=== PATIENT | female | born 1930 | race Asian ===

== ENCOUNTER → 2017-02-02 | Outpatient (CLI) | payer MEDICARE, OTHER, MEDICAID ==
[~2017-02-02] MED LIST: ACET-783 PO; AMLO5TAB4 PO; CALC-22 PO; CITA10TA7 PO; DOCU-175 PO; ENOX40DI SQ; LORA0.5T86 PO; MAGN400O6 PO; MULT-65 PO; POLY17PO6 PO; QUET25TA PO; RISE35TA PO; TRAM50TA53 PO; [UNRECOGNIZED DRUG - REMARK] PO
[2017-02-02 06:37] LABS: BASOPHILS % (AUTO) 0.3 % (0-2); EOSINOPHILS # (AUTO) 0.2 T/MM3 (0-0.5); EOSINOPHILS % (AUTO) 2.1 % (0-4); HCT - HEMATOCRIT 37.9 % (36-46); HGB - HEMOGLOBIN 12.6 GM/DL (12-16); IMMATURE GRANULOCYTE # (AUTO) 0.01 T/MM3 (0.00-0.03); IMMATURE GRANULOCYTE % (AUTO) 0.1 % (0.0-0.5); LYMPHOCYTES # (AUTO) 2.1 T/MM3 (1-4.8); LYMPHOCYTES % (AUTO) 27.3 % (23-45); MEAN CORPUSCULAR HGB 31.7 UUG (26-34); MEAN CORPUSCULAR HGB CONC(MCHC 33.2 GM/DL (31-37); MEAN CORPUSCULAR VOLUME 95.2 UM3 (80-100); MEAN PLATELET VOLUME 9.1 UM3 (9.4-12.4); MONOCYTES # (AUTO) 0.9 T/MM3 (0-0.8); NEUTROPHILS #(AUTO)-ABSOLUTE 4.6 T/MM3 (1.8-7.7); NEUTROPHILS % (AUTO) 59.2 % (33-66); RED BLOOD COUNT 3.98 M/MM3 (4.00-5.20); WBC - WHITE BLOOD COUNT 7.8 T/MM3 (4.5-11.0)
== END ==
LOC: LABNH.A213 02:10
PROVIDERS: ATTEND Family Medicine
DX: I10 Essential (primary) hypertension (principal)
CPT/HCPCS: 36415; 85025; P9604

== ENCOUNTER → 2017-04-04 | Outpatient (CLI) | payer MEDICARE, OTHER, MEDICAID ==
[2017-04-04 17:18] LABS: BLOOD, URINE NEGATIVE (NEGATIVE); COLOR,URINE YELLOW (YELLOW); LEUKOCYTE ESTERASE ,URINE TRACE (NEGATIVE); NITRITE,URINE NEGATIVE (NEGATIVE); UROBILINOGEN,URINE 0.2 EU/DL (NORMAL)
[2017-04-04 17:27] LABS: BACTERIA,URINE NONE SEEN (NEGATIVE); RBC,URINE NONE SEEN /HPF (0-3); SQUAMOUS EPITHELIAL CELL,UR 0-5; WBC,URINE 0-1 /HPF (0-5)
== END ==
LOC: LABN.A1213 16:40
PROVIDERS: ATTEND Family Medicine
DX: R35.0 Frequency of micturition (principal)
CPT/HCPCS: 81001; 87086

== ENCOUNTER 2018-02-26 09:22 | Inpatient (IN) ==
[2018-02-26] MEDS ORDERED: NS 1,000 ML IV ONE (09:35)
--- NOTE | 2018-02-26 09:43 | Emergency Department Report ---
General Adult HPI - General Chief complaint: Medical Emergency Stated complaint: Lethargy Time Seen by Provider: 02/26/18 09:34 Source: patient, family, EMS Mode of arrival: EMS Limitations: other (dementia) - History of Present Illness HPI narrative: 87-year-old female presents to the emergency department via EMS with the chief complaint of feeling poorly. Patient was at her assisted living facility when she noted onset of fever of 101F and feeling poorly. She denies any pain or discomfort. He was at home when her symptoms began. Symptoms have been persistent in nature since onset. Patient is a do not resuscitate. Patient's daughter is at bedside and confirms the patient has a history of similar symptoms with urinary tract infections. Patient is at baseline mental status with dementia. No other complaints or associated symptoms at this time. History is limited secondary to dementia. - Related Data Home Medications Medication Instructions Recorded Confirmed Acetaminophen [Acetaminophen Extra 500 mg PO TID 08/06/17 02/26/18 Strength] Alendronate [Fosamax] 70 mg PO Q7D 08/06/17 02/26/18 Bisacodyl Supp [Dulcolax] 10 mg RECTALLY DAILY PRN 08/06/17 02/26/18 Calcium Carbonate/Vitamin D3 1 tab PO BID 08/06/17 02/26/18 [Caltrate 600 Plus D3 Tablet] Dextromethorphan HBr [Tussin Cough] 30 mg PO Q4H PRN 08/06/17 02/26/18 Donepezil HCl [Aricept] 10 mg PO HS 08/06/17 02/26/18 Guaifenesin/Dextromethorphan 10 ml PO Q4H PRN 08/06/17 02/26/18 [Tussin Dm Syrup] Memantine [Namenda] 10 mg PO BID 08/06/17 02/26/18 Prazosin [Minipress] 1 mg PO HS 08/06/17 02/26/18 Rosuvastatin [Crestor] 10 mg PO HS 08/06/17 02/26/18 Acetaminophen 325 - 650 mg PO Q5H PRN 02/26/18 02/26/18 Citalopram [Celexa] 10 mg PO DAILY 02/26/18 02/26/18 Clotrimazole [Antifungal] 1 applicatio TOP Q8H 02/26/18 02/26/18 Docusate Sodium [Colace] 100 mg PO BID 02/26/18 02/26/18 Milk of Magnesia [Mom] 30 ml PO DAILY 02/26/18 02/26/18 Multivitamin [One Daily] 1 each PO DAILY 02/26/18 02/26/18 Polyethylene Glycol 3350 17 gm PO DAILY 02/26/18 02/26/18 [Smoothlax] Previous Rx's Medication Instructions Recorded Amlodipine Besylate [Norvasc] 5 mg PO DAILY 30 Days #0 tab 05/16/14 Allergies Allergy/AdvReac Type Severity Reaction Status Date / Time No Known Allergies Allergy Verified 02/26/18 09:44 Review of Systems Limitations: ROS unobtainable due to patient's medical condition Constitutional: Reports: fever, weakness Cardiovascular: Denies: chest pain Respiratory: Denies: cough Gastrointestinal: Denies: abdominal pain PFS Patient Stated Medical History Dementia Yes Other HEENT Yes: WEARS GLASSES Hypertension Yes Depression Yes Medical History Updates: Depression, anxiety, hyperlipidemia, hypertension Surgical History: Hysterectomy Family History: Reviewed and Non-contributory. - Social History Smoking status: Never smoker Substance use type: does not use Alcohol intake frequency: does not drink Physical Exam - Limitations Limitations: other (Dementia) - General General appearance: alert, in no apparent distress - Normal Exams: Head:: Normocephalic without trauma Eyes:: Pupils are PERRLA w/ EOMI, No scleral icterus, irritation, or foreign bodies noted ENMT:: No facial trauma, nasal exudates, pharyngeal erythema, or exudates are noted Dental: No fractured, loose, or missing teeth noted Neck:: Full range of motion, without adenopathy, JVD, bruits or thyromegaly Chest/Respirations:: Clear all balderas, with good airflow, and symmetry bilaterally Cardiovascular:: Regular rate and rhythm, without murmur or gallop, Pulses 2+ all extremities, capillary refill, <2 seconds all extremities Abdomen:: Bowel sounds positive, soft, non-tender, non-distended, no hepatosplenomegaly, masses or bruits noted Lymphatic:: No lymphadenopathy, or lymphedema noted Musculoskeletal:: No tenderness, or deformity noted, good range of motion, all extremities Integumentary:: No rashes, hives, or bruising noted, hair and nails, without abnormality Neurological:: Patient is alert (Oriented x 1-2. No focal deficit. Baseline mental status. ) Course Vital Signs Temperature 99.3 F 02/26/18 09:25 Pulse Rate 93 02/26/18 09:25 Respiratory Rate 20 02/26/18 09:25 Blood Pressure 86/52 02/26/18 09:25 Pulse Oximetry 93 02/26/18 09:25 Temperature 98.8 F 02/26/18 12:15 Pulse Rate 88 02/26/18 13:06 Respiratory Rate 6 L 02/26/18 13:06 Blood Pressure 91/61 02/26/18 12:04 Pulse Oximetry 94 02/26/18 13:06 Medical Decision Making - MDM Narrative Medical decision making narrative: Labs / Imaging were discussed in detail with the patient and family and questions are answered. She is ordered Rocephin at 0947 when sepsis was considered. She was ordered 30 mL/kg of normal saline intravenously. Patient is a do not resuscitate. Patient is discussed with the hospitalist Dr. Benito Godwin and then admitted to his service in improved condition. Patient and family are in agreement with the current plan of management. No further orders from accepting physician who is in agreement with the current plan of management. She is ordered Rocephin at 0947 when sepsis was considered. She was ordered 30 mL/kg of normal saline intravenously. - Differential Diagnosis UTI, Sepsis, pneumonia, metabolic process - Lab Data Result diagrams: 02/26/18 09:29 02/26/18 09:55 Lab Results 02/26/18 02/26/18 02/26/18 Range/Units 09:29 09:29 09:55 WBC 26.8 H* (4.5-11.0) T/MM3 RBC 4.18 (4.00-5.20) M/MM3 Hgb 13.3 (12-16) GM/DL Hct 39.5 (36-46) % MCV 94.5 (80-100) UM3 MCH 31.8 (26-34) UUG MCHC 33.7 (31-37) GM/DL RDW Std Deviation 45.2 (36.9-50.2) FL Plt Count 169 (130-400) T/MM3 MPV 9.6 (9.4-12.4) UM3 Immature Gran % (Auto) Not performed Neut % (Auto) Not performed Lymph % (Auto) Not performed [place] % (Auto) Not performed Eos % (Auto) Not performed Baso % (Auto) Not performed Neut # (Auto) Not performed Lymph # (Auto) Not performed [place] # (Auto) Not performed Eos # (Auto) Not performed Baso # (Auto) Not performed Abs Immat Gran (auto) Not performed Neutrophils % (Manual) 70.0 H (33-66) % Band Neutrophils % 26.0 H (0-6) % Monocytes % (Manual) 3.0 (0-9.0) % Metamyelocytes % 1.0 H (0-0) % Neutrophils # (Manual) 18.8 H (1.8-7.7) T/MM3 Band Neutrophils # 7.0 T/MM3 Monocytes # (Manual) 0.8 (0-0.8) T/MM3 Metamyelocytes # 0.3 T/MM3 RBC Morph Comment Normal Turbidity < 20 (0-20) Sodium 146 H (134-144) MEQ/L Potassium 3.8 (3.6-5) MEQ/L Chloride 112 H (98-107) MEQ/L Carbon Dioxide 24 (22-30) MEQ/L Anion Gap 10 (5-15) MEQ/L BUN 24.0 H (7-17) MG/DL Creatinine 1.2 (0.7-1.2) mg/dL GFR Calculation 42 BUN/Creatinine Ratio 20 (6-26) RATIO Glucose 122 H (65-110) MG/DL Calculated Osmolality 286 H (261-280) MOSM/KG Calcium 8.6 (8.4-10.2) MG/DL Total Bilirubin 0.30 (0.20-1.30) MG/DL Icterus Index < 2 (0-7) AST 28 (14-36) U/L ALT 22 (1-35) U/L Alkaline Phosphatase 42 (38-126) U/L Troponin I < 0.012 (0-0.12) ng/ml Total Protein 6.2 L (6.3-8.2) g/dL Albumin 3.7 (3.5-5.0) g/dL Globulin 2.5 (2.4-3.6) G/DL Albumin/Globulin Ratio 1.5 (1.1-2.2) RATIO Plasma Lactate 3.0 H (0.6-2.2) MMOL/L Procalcitonin 50.92 H* NG/ML Specimen Hemolysis < 15 (0-25) Ur Collection Type Urine Color (YELLOW) Urine Clarity Urine pH (5.0-8.0) Ur Specific [place] (1.015-1.025) Urine Protein (NEGATIVE) Urine Glucose (UA) (NEGATIVE) Urine Ketones (NEGATIVE) Urine Occult Blood (NEGATIVE) Urine Nitrate (NEGATIVE) Urine Bilirubin (NEGATIVE) Urine Urobilinogen (NORMAL) EU/DL Ur Leukocyte Esterase (NEGATIVE) Urine RBC (0-3) /HPF Urine WBC (0-5) /HPF Urine WBC Clumps Ur Transition Epith Cell /HPF Amorphous Sediment Urine Bacteria (NEGATIVE) Ur Culture Indicated? 02/26/18 Range/Units 10:12 WBC (4.5-11.0) T/MM3 RBC (4.00-5.20) M/MM3 Hgb (12-16) GM/DL Hct (36-46) % MCV (80-100) UM3 MCH (26-34) UUG MCHC (31-37) GM/DL RDW Std Deviation (36.9-50.2) FL Plt Count (130-400) T/MM3 MPV (9.4-12.4) UM3 Immature Gran % (Auto) Neut % (Auto) Lymph % (Auto) [place] % (Auto) Eos % (Auto) Baso % (Auto) Neut # (Auto) Lymph # (Auto) [place] # (Auto) Eos # (Auto) Baso # (Auto) Abs Immat Gran (auto) Neutrophils % (Manual) (33-66) % Band Neutrophils % (0-6) % Monocytes % (Manual) (0-9.0) % Metamyelocytes % (0-0) % Neutrophils # (Manual) (1.8-7.7) T/MM3 Band Neutrophils # T/MM3 Monocytes # (Manual) (0-0.8) T/MM3 Metamyelocytes # T/MM3 RBC Morph Comment Turbidity (0-20) Sodium (134-144) MEQ/L Potassium (3.6-5) MEQ/L Chloride (98-107) MEQ/L Carbon Dioxide (22-30) MEQ/L Anion Gap (5-15) MEQ/L BUN (7-17) MG/DL Creatinine (0.7-1.2) mg/dL GFR Calculation BUN/Creatinine Ratio (6-26) RATIO Glucose (65-110) MG/DL Calculated Osmolality (261-280) MOSM/KG Calcium (8.4-10.2) MG/DL Total Bilirubin (0.20-1.30) MG/DL Icterus Index (0-7) AST (14-36) U/L ALT (1-35) U/L Alkaline Phosphatase (38-126) U/L Troponin I (0-0.12) ng/ml Total Protein (6.3-8.2) g/dL Albumin (3.5-5.0) g/dL Globulin (2.4-3.6) G/DL Albumin/Globulin Ratio (1.1-2.2) RATIO Plasma Lactate (0.6-2.2) MMOL/L Procalcitonin NG/ML Specimen Hemolysis (0-25) Ur Collection Type Urine, cath straight Urine Color [place] (YELLOW) Urine Clarity Cloudy Urine pH >=9.0 A (5.0-8.0) Ur Specific [place] 1.010 L (1.015-1.025) Urine Protein 2+ A (NEGATIVE) Urine Glucose (UA) Negative (NEGATIVE) Urine Ketones Trace A (NEGATIVE) Urine Occult Blood Negative (NEGATIVE) Urine Nitrate Negative (NEGATIVE) Urine Bilirubin 1+ A (NEGATIVE) Urine Urobilinogen 0.2 (NORMAL) EU/DL Ur Leukocyte Esterase 2+ A (NEGATIVE) Urine RBC 0-1 (0-3) /HPF Urine WBC Tntc H (0-5) /HPF Urine WBC Clumps Few Ur Transition Epith Cell 1-3 /HPF Amorphous Sediment Many Urine Bacteria 4+ H (NEGATIVE) Ur Culture Indicated? Cult reflexed &setup - Radiology Data CXR - Hypoinflation. Similar to comparison exam but cannot exclude underlying infiltrates. CT HEAD - Sinus disease and chronic brain changes. No acute processes. - EKG Data EKG #1 EKG results narrative: Sinus rhythm. 92 bpm. No STEMI. Disposition Clinical Impression: UTI (urinary tract infection) Qualifiers: Urinary tract infection type: site unspecified Hematuria presence: without hematuria Qualified Code(s): N39.0 - Urinary tract infection, site not specified [place] [facility] [place] Condition: Stable Time of Disposition: 11:00 - Seen By: physician
[2018-02-26] MEDS ORDERED: CEFTRIAXONE (ER USE ONLY) 1 GM in NS 100 ML IV ONE (09:47)
[2018-02-26] MEDS: SALINE FLUSH 10ml SYRINGE IVF PRN ×2 (10:36→12:52)
[2018-02-26] MEDS ORDERED: NS 1,000 ML IV SCH (10:45)
--- NOTE | 2018-02-26 12:03 | History & Physical Report ---
History of Present Illness Date: 02/26/18 ([place] resident) Chief complaint: Lethargy HPI: Ian is an 87 yo AF with a history of dementia/behavioral dyscontrol that reside in [place]. 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 Due to progression of her dementia, she is now in the LTC facility. She is lethargic and does not respond well to stimuli. History is obtained from old records, and her daughter as well. Patient was noted to be lethargic this morning per ER records. She was brought into the ER due to her symptoms, as well as a fever. She has been found to be acutely septic with symptoms of septic shock. She has been started on sepsis protocol, and is being admitted to the ICU. Initial diagnosis in the ER has been UTI, however, her CXR is also concerning for a pulmonary source of infection. Upon further discussion with the daughter, she reports that her mother has had several episodes of a persistent cough. Initially resolved spontaneously, but has most recently required nebulizer treatments to help her symptoms. She does not routinely visit at mealtimes, and staff has not reported a cough, however, daughter has been notified by another resident that the patient "chokes a lot at meals." She does not believe patient has a prior diagnosis of heart issues or heart failure. Has not been evaluated by cardiology. No recent issues with edema reported. We discussed diagnosis of sepsis and plan/wishes of care. Patient is a full DNR. Daughter reports that patient was very clear when she was well that she did not want advanced life support measures, did not wish to be sustained w/o quality of life, and would not want overly aggressive measures. We discussed current status, possible means of support: -Full DNR, no intubation. -Questionable Bipap- D/W daughter before starting if needed. -No pressors. -No feeding tubes of any type. Daughter is supportive of more conservative means of treatment with goal of quality of life at this point. She is agreeable to supportive treatment of infection with monitoring of progress. Review of Systems ROS unobtainable: due to mental status Past Medical History Medical History Updates: Depression/Anxiety. Dementia with behavioral dyscontrol. HTN. DLDM. Osteoporosis Surgical History: Hysterectomy. Left hip Family History: Mother and Father both of stroke Family History: As Above - Social History Smoking status: Never smoker Housing: care home Current occupational status: disabled Current occupational exposures/hazards: No Does patient use chewing tobacco?: No Current residence: [place] ([place]) Medications Home Medications Medication Instructions Recorded Confirmed Type Amlodipine Besylate [Norvasc] 5 mg PO DAILY 30 Days #0 tab 05/16/14 02/26/18 Rx Acetaminophen [Acetaminophen Extra 500 mg PO TID 08/06/17 02/26/18 History Strength] Alendronate [Fosamax] 70 mg PO Q7D 08/06/17 02/26/18 History Bisacodyl Supp [Dulcolax] 10 mg RECTALLY DAILY PRN 08/06/17 02/26/18 History Calcium Carbonate/Vitamin D3 1 tab PO BID 08/06/17 02/26/18 History [Caltrate 600 Plus D3 Tablet] Dextromethorphan HBr [Tussin Cough] 30 mg PO Q4H PRN 08/06/17 02/26/18 History Donepezil HCl [Aricept] 10 mg PO HS 08/06/17 02/26/18 History Guaifenesin/Dextromethorphan 10 ml PO Q4H PRN 08/06/17 02/26/18 History [Tussin Dm Syrup] Memantine [Namenda] 10 mg PO BID 08/06/17 02/26/18 History Prazosin [Minipress] 1 mg PO HS 08/06/17 02/26/18 History Rosuvastatin [Crestor] 10 mg PO HS 08/06/17 02/26/18 History Acetaminophen 325 - 650 mg PO Q5H PRN 02/26/18 02/26/18 History Citalopram [Celexa] 10 mg PO DAILY 02/26/18 02/26/18 History Clotrimazole [Antifungal] 1 applicatio TOP Q8H 02/26/18 02/26/18 History Docusate Sodium [Colace] 100 mg PO BID 02/26/18 02/26/18 History Milk of Magnesia [Mom] 30 ml PO DAILY 02/26/18 02/26/18 History Multivitamin [One Daily] 1 each PO DAILY 02/26/18 02/26/18 History Polyethylene Glycol 3350 17 gm PO DAILY 02/26/18 02/26/18 History [Smoothlax] Allergies Allergy/AdvReac Type Severity Reaction Status Date / Time No Known Allergies Allergy Verified 02/26/18 09:44 Exam Vital Signs: Temperature 99.3 F 02/26/18 09:25 Pulse Rate 87 02/26/18 11:15 Respiratory Rate 18 02/26/18 10:59 Blood Pressure 105/63 02/26/18 11:15 Pulse Oximetry 96 02/26/18 11:15 Telemetry Rhythm: Sinus Tachycardia Height/Weight/BMI: Height 1.6 m Weight 70.1 kg - Constitutional Present: moderate distress (She is dyspneic and wheezing audibly.), obese, somnolent - Routine HEENT Exam Head: Present: normocephalic, atraumatic Eye: Absent: PERRL (Pupils are constricted bilaterally. ) ENT: Present: mucous membranes dry. Absent: dentition normal - Routine Neck Exam Present: supple, full ROM. Absent: carotid bruit, thyromegaly, tenderness - Routine Respiratory Exam Present: accessory muscle use, decreased breath sounds, wheezes (Audible. ), diminished air movement (Has sleep-apneic breathing patter. ) - Routine Cardiovascular Exam Present: RRR, S1, S2, no murmur, tachycardia - Routine Abdominal Exam Present: soft, non distended, non tender. Absent: normoactive bowel sounds ( Quiet) - Routine Exam Comments: Kowalski- dark casandra, cloudy urine - Routine Extremities Exam Present: no edema, pulses intact. Absent: extremity cold to touch - Routine Skin Exam Present: intact, dry, warm. Absent: mottling - Routine Neurological Exam Absent: alert, oriented X3 - Routine Psychiatric Exam Present: unable to assess Results - Labs CBC & Chem 7: 02/26/18 09:29 02/26/18 09:55 Microbiology Results: Microbiology 02/26/18 10:12 Urine, Cath Straight Urine Culture - Preliminary Culture Initiated - Results Pending - Imaging and Cardiology Chest x-ray Status: image reviewed by me (Bilateral infiltrates. Underinflated bilaterally. Visible aortic calcification. ), pending CT scan - head Status: image reviewed by me Additional comments: Mod-severe cortical atrophy. Sinus disease. No stroke per Vrad Assessment and Plan (1) Severe sepsis Current visit: Yes Status: Acute Assessment and Plan: Assessment: 1. Severe Sepsis 2. UTI, complicated 3. HCAP, with likely aspiration 4. Advanced dementia with behavioral dyscontrol. 5. Acute respiratory insufficiency 6. Altered mental status. 7. HTN 8.DLDM 9. Suspected chronic aspiration Plan: 02/26/18 Admit- Inpatient, ICU admission. D/W Dr. Godwin *Severe sepsis- Urine and pulm sources likely. Core measures for sepsis. Will need to use caution for fluid overload. She is audibly wheezy, give Lasix x 1 now. Add nebs for PRN use. Add broad spectrum abx- use Zosyn/Vanco due to concern for aspiration and UTI. Avoid Quinolone due to advanced age, risk for sz and behavior changes. BC done. Urine cx. done. NPO. O2 to support sats. *Likely recurrent Aspiration- Abx as above. NPO. Consider ST screen if patient improves. *Advanced dementia- cautious medical support. No advanced supportive measures. Call before starting bipap. *HTN/DLDM/OP- hold home meds. *DNR confirmed. *add PPI/SCDs for px. DVT Prophylaxis: SCD's GI Prophylaxis: Protonix Resuscitation Status: Do Not Resuscitate - Time spent with patient Time with patient PN: 70 minutes Coordination of Care: >50% of visit spent providing counseling/coordination of care - Physician Narrative Physician: Benito Godwin MD Narrative: Date: 02/26/18 Time: 2238 I have independently interviewed and examined the patient. Chart reviewed. Case discussed with [employer] MANAGER. Care plan developed with my supervision; agree with above. Mrs. Anderson is an 87 yo resident of [place] with dementia. She was largely unresponsive and brought to the ER. Her daughter is present and provides some history. Her mother seemed OK yesterday, but she has been having increasing respiratory/cough difficulties of late. Given the patient's stated wishes, her daughter has put a DNR in place. She is OK with antibiotics and IVF but does not want pressors and might be OK with BiPAP. Gen- lethargic. Lungs- wheezes. CV- RRR. Abd- s/nt/nd. Ext- no edema. Neuro- intermittently follows commands. Admit as inpatient to CCU. 2100 ml of IVF was infused in ER. BP has improved. Lactate down from 3 to 2.2. Holding IVF and lasix given. Vanco and Zosyn started to cover possible aspiration PNA and UTI. Will repeat CXR in AM. Will need speech eval when alert enough. Patient npo for now. Will hold home meds. Daughter clear that patient would not want a feeding tube. Monitor for behavioral issues or worsening confusion. Sepsis Assessment - Evaluation SIRS Criteria: temperature > 100.9, pulse > 90 beats/minute, WBC > 12,000, Bands > 10%, RR > 20 Severe Sepsis: hypotension (SBP <90 or MAP <65 x2 readings), lactate > 2.0 mg/dL , Creatinine >2.0 mg/dL or 0.5 mg/dL above baseline Hospital Course Summary Disclaimer: The visit summary below is not to be considered part of the above Progress Note. Hospital Course: Assessment: 1. severe sepsis 2. UTI, complicated 3. HCAP, with likely aspiration 4. Advanced dementia with behavioral dyscontrol. 5. Acute respiratory insufficiency 6. Altered mental status. 7. HTN 8.DLDM 9. Suspected chronic aspiration Plan: 02/26/18 Admit- Inpatient, ICU admission. D/W Dr. Godwin *severe sepsis- Urine and pulm sources likely. Core measures for sepsis. Will need to use caution for fluid overload. She is audibly wheezy, give Lasix x 1 now. Add nebs for PRN use. Add broad spectrum abx- use Zosyn/Vanco due to concern for aspiration and UTI. Avoid Quinolone due to advanced age, risk for sz and behavior changes. BC done. Urine cx. done. NPO. O2 to support sats. *Likely recurrent Aspiration- Abx as above. NPO. Consider ST screen if patient improves. *Advanced dementia- cautious medical support. No advanced supportive measures. Call before starting bipap. *HTN/DLDM/OP- hold home meds. *DNR confirmed. *add PPI/SCDs for px.
[2018-02-26 12:29] VITALS: BMI 29.1
[2018-02-26] MEDS ORDERED: BISACODYL 10 MG SUPPOSITORY RECTALLY PRN (12:37)
[2018-02-26] MEDS ORDERED: FUROSEMIDE 20 MG/2 ML INJECTION IVP ONE (12:37)
[2018-02-26] MEDS ORDERED: VANCOMYCIN - PHARMACY CONSULT MC ONE (12:37)
[2018-02-26] MEDS ORDERED: ACETAMINOPHEN 650 MG SUPPOSITORY PR PRN (12:37)
[2018-02-26] MEDS ORDERED: ONDANSETRON 4 MG/2 ML INJECTION IVP PRN (12:37)
[2018-02-26] MEDS ORDERED: MORPHINE SULFATE 4mg INJECTION IVP PRN (12:37)
[2018-02-26] MEDS: PANTOPRAZOLE 40 MG INJECTION IVP SCH (12:52)
[2018-02-26] MEDS: ALBUTEROL/IPRATROPIUM 2.5mg-0.5mg/3ml NEB AEROSOL SCH ×4 (12:53→23:33)
--- NOTE | 2018-02-26 13:17 | Pharmacy Consult-Antibiotics ---
Pharmacy Consult-Vancomycin - Laboratory Information WBC 26.8 T/MM3 (4.5-11.0) H* 02/26/18 09:29 BUN 24.0 MG/DL (7-17) H 02/26/18 09:55 Creatinine 1.2 mg/dL (0.7-1.2) 02/26/18 09:55 Procalcitonin 50.92 NG/ML H* 02/26/18 09:29 - Consult Information Consult noted by Sebastian Elaine APRN to begin vancomycin therapy for Ms Anderson, who is 87 years old and weighs 74.6kg. She has sepsis. Will begin vancomycin 1250mg IV q24h. Will continue to monitor. Thank you.
[2018-02-26] MEDS ORDERED: PIPERACILLIN/TAZOBACTAM 3.375 GM in NS 100 ML IV SCH (13:30)
[2018-02-26] MEDS: PIPERACILLIN/TAZOBACTAM 2.25 GM in NS 50 ML IV SCH ×2 (14:20→18:15)
[2018-02-27] MEDS: PIPERACILLIN/TAZOBACTAM 2.25 GM in NS 50 ML IV SCH ×2 (00:25→06:28)
[2018-02-27] MEDS: ALBUTEROL/IPRATROPIUM 2.5mg-0.5mg/3ml NEB AEROSOL SCH ×6 (03:37→23:09)
[2018-02-27] MEDS: SALINE FLUSH 10ml SYRINGE IVF PRN (06:28)
--- NOTE | 2018-02-27 07:30 | CT Scan Report ---
Indication: ams PROCEDURE: CT head/brain wo con: Encounter: Initial Comparison: August 21, 2014 Technique: Axial CT images through the head were performed without contrast. Iterative Reconstruction dose reducing technique was utilized. FINDINGS: Moderate atrophy. The ventricles are of normal size, shape, and contour for the patient's age. There are scattered areas of low attenuation in the white matter which most likely represent changes from chronic microvascular ischemia. The brainstem, cerebellum, and cerebral hemispheres otherwise have a normal morphology and CT attenuation. There is no evidence of midline displacement. No hemorrhage, signs of acute territorial stroke, mass effect, mass lesions, or edema is evident. The visualized portions of the skull base, midface, and calvarium demonstrate no abnormality. Significant opacification of the left maxillary sinus with high attenuation secretions. The tympanic and mastoid cavities appear normal. IMPRESSION: No acute intracranial abnormality or hemorrhage. Left maxillary sinusitis. There is a preliminary report by [employer]. .
--- NOTE | 2018-02-27 07:51 | XRay Report ---
Indication: AMS PROCEDURE: XR chest 1V: Encounter: Initial Comparison: August 06, 2017 Findings: Lungs remain hypoinflated with an elevated right hemidiaphragm. Airspace disease in the lower lobes is difficult to exclude. No pneumothorax or obvious pleural effusion. Visualized heart border appears stable. Mediastinal contours are grossly stable. Pulmonary vascularity is stable. Impression: Low lung volumes making evaluation of the lung bases difficult. No obvious focal pneumonia. .
[2018-02-27] MEDS: PANTOPRAZOLE 40 MG INJECTION IVP SCH (09:03)
--- NOTE | 2018-02-27 10:24 | XRay Report ---
Indication: sepsis PROCEDURE: XR chest 1V: Encounter: Initial Comparison: February 26, 2018 Findings: Lungs remain hypoinflated with prominent interstitial markings. Increasing lower lobe airspace disease on the right. No pneumothorax. Heart size and mediastinal contours are stable. Impression: Worsening right lower lobe airspace disease could be due to atelectasis, pneumonia or aspiration. .
--- NOTE | 2018-02-27 11:44 | Progress Note ---
- Date 02/27/18 Subjective: F/U: Severe Sepsis, UTI, complicated, HCAP-with likely aspiration Somnolent this am, but was able to work with speech. Maintaining saturations of RA. Not reporting pain. BP improving. Daughter at bedside - voices not wanting to pursue feeding tube. Objective Vital signs: Temperature 98.4 F 02/27/18 11:17 Pulse Rate 77 02/27/18 11:15 Respiratory Rate 17 02/27/18 11:15 Blood Pressure 148/68 H 02/27/18 11:01 Pulse Oximetry 92 02/27/18 11:15 Height/Weight/BMI: Height 1.6 m Weight 75.1 kg Body Mass Index 29.1 - Constitutional Present: well nourished, well developed, average body habitus, somnolent - Routine HEENT Exam Head: Present: normocephalic, atraumatic Eye: Present: EOMI ENT: Present: mucous membranes dry - Routine Respiratory Exam Present: decreased breath sounds, rales, rhonchi. Absent: respiratory distress - Routine Cardiovascular Exam Present: RRR, no murmur - Routine Abdominal Exam Present: soft, normoactive bowel sounds, non distended, non tender - Routine Extremities Exam Present: no edema, pulses intact. Absent: cyanosis, clubbing - Routine Skin Exam Present: dry, warm - Routine Neurological Exam Somnolent - Routine Psychiatric Exam Comments: Somnolent Results - Labs CBC & Chem 7: 02/27/18 01:11 02/27/18 01:11 Assessment and Plan (1) Severe sepsis Current visit: Yes Status: Acute Assessment and Plan: Assessment Severe Sepsis UTI, complicated HCAP, with likely aspiration Advanced dementia with behavioral dyscontrol Acute respiratory insufficiency Altered mental status HTN DLD Chronic dysphagia Suspected chronic aspiration Plan Continue with Zosyn and vancomycin for antimicrobial coverage. Speech working with swallow function - family against feeding tube. Will restart oral medications - hold BP medications at this time as BP recovering. Recheck CBC in am due to leukocytosis and sepsis-recheck Procalcitonin. Repeat BMP in am due to medication use. Case discussed with CCU nursing and pt's daughter. Care plans discussed. Time spent with patient care 35 minutes. DVT Prophylaxis: Lovenox Resuscitation Status: Do Not Resuscitate - Physician Narrative Physician: Ryder Briones MD Narrative: Date: 02/27/18 Time: 1141 Hospital Course Summary Disclaimer: The visit summary below is not to be considered part of the above Progress Note. Hospital Course: 02/26/18 Inpatient admission, CCU Admit- Inpatient, ICU admission. D/W Dr. Godwin Severe sepsis- Urine and pulm sources likely. Core measures for sepsis. Will need to use caution for fluid overload. She is audibly wheezy, give Lasix x 1 now. Add nebs for PRN use. Add broad spectrum abx- use Zosyn/Vanco due to concern for aspiration and UTI. Avoid Quinolone due to advanced age, risk for sz and behavior changes. BC done. Urine cx. done. NPO. O2 to support sats. Likely recurrent Aspiration- Abx as above. NPO. Consider ST screen if patient improves. *Advanced dementia- cautious medical support. No advanced supportive measures. Call before starting bipap. 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 DNR confirmed. Add PPI/SCDs for px. 02/27/18 Continue with Zosyn and vancomycin for antimicrobial coverage. Speech working with swallow function - family against feeding tube. Will restart oral medications - hold BP medications at this time as BP recovering. Recheck CBC in am due to leukocytosis and sepsis-recheck Procalcitonin. Repeat BMP in am due to medication use.
[2018-02-27] MEDS: PIPERACILLIN/TAZOBACTAM 2.25 GM in NS 100 ML IV SCH ×2 (13:07→18:56)
[2018-02-27] MEDS: ACETAMINOPHEN 500 MG TABLET PO SCH ×2 (14:43→20:32)
[2018-02-27] MEDS: DOCUSATE SODIUM 100 MG CAPSULE PO SCH (20:32)
[2018-02-27] MEDS: MEMANTINE 10 MG TABLET PO SCH (20:32)
[2018-02-27] MEDS: ROSUVASTATIN 10 MG TABLET PO SCH (20:32)
[2018-02-27] MEDS: DONEPEZIL 10 MG TABLET PO SCH (20:32)
[2018-02-28] MEDS: PIPERACILLIN/TAZOBACTAM 2.25 GM in NS 100 ML IV SCH ×4 (00:53→19:02)
[2018-02-28] MEDS: ALBUTEROL/IPRATROPIUM 2.5mg-0.5mg/3ml NEB AEROSOL SCH ×6 (03:03→20:18)
[2018-02-28] MEDS: ACETAMINOPHEN 500 MG TABLET PO SCH ×3 (08:31→20:49)
[2018-02-28] MEDS: CITALOPRAM 10 MG TABLET PO SCH (08:31)
[2018-02-28] MEDS: SALINE FLUSH 10ml SYRINGE IV PRN ×3 (08:31→20:49)
[2018-02-28] MEDS: DOCUSATE SODIUM 100 MG CAPSULE PO SCH ×2 (08:31→20:48)
[2018-02-28] MEDS: MEMANTINE 10 MG TABLET PO SCH ×2 (08:32→20:48)
[2018-02-28] MEDS: PANTOPRAZOLE 40 MG INJECTION IVP SCH (08:32)
[2018-02-28] MEDS: POLYETHYL GLYCOL 3350 17gm PACKET PO SCH (08:33)
--- NOTE | 2018-02-28 10:04 | Progress Note ---
- Date 02/28/18 Subjective: F/U: Severe Sepsis, UTI, complicated, HCAP-with likely aspiration Resting in bed-more awake and alert this am. Will answer questions with short phrases. Denies pain. Does report lung congestion and slight SOA, but not hurting with breathing of feeing she is having to work hard to breath. Not hungry, but was able to take some food in. Notes nausea at times. Daughter at bedside and case discussed with her. Objective Vital signs: Temperature 98.1 F 02/27/18 19:00 Pulse Rate 91 02/28/18 08:00 Respiratory Rate 18 02/28/18 07:54 Blood Pressure 143/69 H 02/28/18 06:00 Pulse Oximetry 94 02/28/18 07:54 Height/Weight/BMI: Height 1.6 m Weight 73.5 kg Body Mass Index 29.1 - Constitutional Present: well nourished, well developed, average body habitus, cooperative, other (More awake and alert today. Less tired.) - Routine HEENT Exam Head: Present: normocephalic, atraumatic Eye: Present: EOMI, PERRL ENT: Present: mucous membranes dry (Slighty dry) - Routine Respiratory Exam Present: decreased breath sounds. Absent: rales, respiratory distress, rhonchi , wheezes, crackles - Routine Cardiovascular Exam Present: RRR, no murmur - Routine Abdominal Exam Present: soft, normoactive bowel sounds, non distended, non tender. Absent: guarding - Routine Exam Comments: Kowalski in place - Routine Extremities Exam Present: no edema. Absent: cyanosis, clubbing Comments: SCD present - Routine Musculoskeletal Exam Musculoskeletal: Present: no clubbing or cyanosis - Routine Skin Exam Present: dry, warm - Routine Neurological Exam Present: alert, CN II-XII intact, vision grossly intact, hearing grossly intact. Absent: altered mental status - Routine Psychiatric Exam Present: normal affect, cooperative. Absent: anxious, agitated Results - Labs CBC & Chem 7: 02/28/18 04:47 02/28/18 04:47 Assessment and Plan (1) Severe sepsis Current visit: Yes Status: Acute Assessment and Plan: Assessment Severe Sepsis UTI, complicated, Proteus mirabilis growing Septicemia with Proteus mirabilis (2 of 2 BC positive from admit) HCAP, with likely aspiration Advanced dementia with behavioral dyscontrol Acute respiratory insufficiency Altered mental status HTN DLD Chronic dysphagia Suspected chronic aspiration Plan Blood and urine cultures growing Proteus mirabilis, can continue with Zosyn but stop vancomycin. WBC and procalcitonin decreasing. More awake and alert. Continue speech therapy to maximize swallow function. BP showing elevation to 140s to 150s - will continue to hold BP medications due to resolving severe sepsis. Clinically making gains, can transfer to medical floor for continuation of care. Recheck CBC in am due to leukocytosis and sepsis. Repeat BMP in am due to medication use. Will repeat BC due to septicemia. Case discussed with CCU nursing, CM, and pt's daughter. Care plans discussed. Time spent with patient care 25 minutes. DVT Prophylaxis: SCD's Resuscitation Status: Do Not Resuscitate - Time spent with patient Time with patient PN: 25 minutes - Physician Narrative Physician: Ryder Briones MD Narrative: Date: 02/28/18 Time: 1001 Hospital Course Summary Disclaimer: The visit summary below is not to be considered part of the above Progress Note. Hospital Course: 02/26/18 Inpatient admission, CCU Admit- Inpatient, ICU admission. D/W Dr. Godwin Severe sepsis- Urine and pulm sources likely. Core measures for sepsis. Will need to use caution for fluid overload. She is audibly wheezy, give Lasix x 1 now. Add nebs for PRN use. Add broad spectrum abx- use Zosyn/Vanco due to concern for aspiration and UTI. Avoid Quinolone due to advanced age, risk for sz and behavior changes. BC done. Urine cx. done. NPO. O2 to support sats. Likely recurrent Aspiration- Abx as above. NPO. Consider ST screen if patient improves. *Advanced dementia- cautious medical support. No advanced supportive measures. Call before starting bipap. 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 DNR confirmed. Add PPI/SCDs for px. 02/27/18 Continue with Zosyn and vancomycin for antimicrobial coverage. Speech working with swallow function - family against feeding tube. Will restart oral medications - hold BP medications at this time as BP recovering. Recheck CBC in am due to leukocytosis and sepsis-recheck Procalcitonin. Repeat BMP in am due to medication use. 02/28/18 Blood and urine cultures growing Proteus mirabilis, can continue with Zosyn but stop vancomycin. WBC and procalcitonin decreasing. More awake and alert. Continue speech therapy to maximize swallow function. BP showing elevation to 140s to 150s - will continue to hold BP medications due to resolving severe sepsis. Clinically making gains, can transfer to medical floor for continuation of care.
[2018-02-28] MEDS: DONEPEZIL 10 MG TABLET PO SCH (20:48)
[2018-02-28] MEDS: ROSUVASTATIN 10 MG TABLET PO SCH (20:48)
[2018-03-01] MEDS: SALINE FLUSH 10ml SYRINGE IV PRN ×2 (00:21→10:24)
[2018-03-01] MEDS: PIPERACILLIN/TAZOBACTAM 2.25 GM in NS 100 ML IV SCH ×2 (00:21→06:38)
[2018-03-01] MEDS: ALBUTEROL/IPRATROPIUM 2.5mg-0.5mg/3ml NEB AEROSOL SCH ×6 (00:33→20:09)
[2018-03-01] MEDS: PANTOPRAZOLE 40 MG INJECTION IVP SCH (10:24)
--- NOTE | 2018-03-01 10:24 | Progress Note ---
- Date 03/01/18 Subjective: F/U: Severe Sepsis, UTI, complicated, HCAP-with likely aspiration Doing okay today. Needing O2 overnight but breathing comfortably on RA during day. Does have some cough and congestion. Oral drive decreased; taking supplements well, but not interested in regular foods. Sleepy during day (not unusual for her), but will readily waken and converse. Not restless or agitated. Stools moving-loose; nursing holding laxatives. Objective Vital signs: Temperature 99.5 F 03/01/18 07:42 Pulse Rate 93 03/01/18 07:42 Respiratory Rate 16 03/01/18 08:00 Blood Pressure 151/67 H 03/01/18 07:42 Pulse Oximetry 93 03/01/18 08:34 Height/Weight/BMI: Height 1.6 m Weight 74.6 kg Body Mass Index 29.1 - Constitutional Present: well nourished, well developed, average body habitus, cooperative - Routine HEENT Exam Head: Present: normocephalic, atraumatic Eye: Present: EOMI, PERRL ENT: Present: mucous membranes dry (Slight white coating present) - Routine Respiratory Exam Present: decreased breath sounds. Absent: rales, respiratory distress, rhonchi - Routine Cardiovascular Exam Present: RRR, no murmur - Routine Abdominal Exam Present: soft, non distended, non tender. Absent: normoactive bowel sounds ( decreased) - Routine Extremities Exam Present: no edema, pulses intact. Absent: cyanosis, clubbing Comments: SCD in place - Routine Musculoskeletal Exam Musculoskeletal: Present: no clubbing or cyanosis - Routine Skin Exam Present: dry, warm - Routine Neurological Exam Present: alert, CN II-XII intact, vision grossly intact, hearing grossly intact , normal speech. Absent: motor deficit, altered mental status - Routine Psychiatric Exam Present: normal affect, cooperative. Absent: anxious, agitated Results - Labs CBC & Chem 7: 03/01/18 05:01 03/01/18 05:01 Microbiology Results: Microbiology 03/01/18 05:01 Peripheral/Iv Start Blood Culture - Preliminary Culture Initiated - Results Pending 03/01/18 05:01 Peripheral/Iv Start Blood Culture - Preliminary Culture Initiated - Results Pending Assessment and Plan (1) Severe sepsis Current visit: Yes Status: Acute Assessment and Plan: Assessment Severe Sepsis UTI, complicated, Proteus mirabilis growing Septicemia with Proteus mirabilis (2 of 2 BC positive from admit) HCAP, with likely aspiration Leukocytosis (POA) Thrush (Not POA) Hypernatremia (POA) Hypokalemia (Not POA) Advanced dementia with behavioral dyscontrol Acute respiratory insufficiency Altered mental status HTN DLD Chronic dysphagia Suspected chronic aspiration Plan More awake and alert. Oral drive increasing slowly. WBC decreasing. Will change to ceftriaxone for coverage of Proteus. Start Mycelex for thrush. PT/OT for active/passive ROM modalities. Oral potassium 20mEq x1 as potassium with decrease. Can restart home antihypertensives as BP elevated and severe sepsis resolving. Encourage oral intake. Recheck CBC and Procalcitonin in am due to resolving sepsis and leukocytosis. Will recheck BMP and Mg in am due to hypernatremia and hypokalemia. Recheck CXR in am for monitoring of pneumonia. Case discussed with nursing CM, and pt's daughter. Care plans discussed. Time spent with patient care 25 minutes. DVT Prophylaxis: SCD's GI Prophylaxis: Protonix Resuscitation Status: Do Not Resuscitate - Time spent with patient Time with patient PN: 25 minutes - Physician Narrative Physician: Ryder Briones MD Narrative: Date: 03/01/18 Time: 1020 Hospital Course Summary Disclaimer: The visit summary below is not to be considered part of the above Progress Note. Hospital Course: 02/26/18 Inpatient admission, CCU Admit- Inpatient, ICU admission. D/W Dr. Godwin Severe sepsis- Urine and pulm sources likely. Core measures for sepsis. Will need to use caution for fluid overload. She is audibly wheezy, give Lasix x 1 now. Add nebs for PRN use. Add broad spectrum abx- use Zosyn/Vanco due to concern for aspiration and UTI. Avoid Quinolone due to advanced age, risk for sz and behavior changes. BC done. Urine cx. done. NPO. O2 to support sats. Likely recurrent Aspiration- Abx as above. NPO. Consider ST screen if patient improves. *Advanced dementia- cautious medical support. No advanced supportive measures. Call before starting bipap. 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 DNR confirmed. Add PPI/SCDs for px. 02/27/18 Continue with Zosyn and vancomycin for antimicrobial coverage. Speech working with swallow function - family against feeding tube. Will restart oral medications - hold BP medications at this time as BP recovering. Recheck CBC in am due to leukocytosis and sepsis-recheck Procalcitonin. Repeat BMP in am due to medication use. 02/28/18 Blood and urine cultures growing Proteus mirabilis, can continue with Zosyn but stop vancomycin. WBC and procalcitonin decreasing. More awake and alert. Continue speech therapy to maximize swallow function. BP showing elevation to 140s to 150s - will continue to hold BP medications due to resolving severe sepsis. Clinically making gains, can transfer to medical floor for continuation of care. 03/01/18 More awake and alert. Oral drive increasing slowly. WBC decreasing. Will change to ceftriaxone for coverage of Proteus. Start Mycelex for thrush. PT/OT for active/passive ROM modalities. Oral potassium 20mEq x1 as potassium with decrease. Can restart home antihypertensives as BP elevated and severe sepsis resolving. Encourage oral intake.
[2018-03-01] MEDS: CITALOPRAM 10 MG TABLET PO SCH (10:25)
[2018-03-01] MEDS: MEMANTINE 10 MG TABLET PO SCH ×2 (10:25→20:45)
[2018-03-01] MEDS: DOCUSATE SODIUM 100 MG CAPSULE PO SCH ×2 (10:25→22:06)
[2018-03-01] MEDS: ACETAMINOPHEN 500 MG TABLET PO SCH ×3 (10:25→20:44)
[2018-03-01] MEDS: POLYETHYL GLYCOL 3350 17gm PACKET PO SCH (10:26)
[2018-03-01] MEDS ORDERED: POTASSIUM CHLORIDE 20 MEQ/15 ML ORAL LIQUID PO ONE (12:30)
[2018-03-01] MEDS: CLOTRIMAZOLE 10 MG TROCHE MM SCH ×4 (13:01→20:45)
[2018-03-01] MEDS: CEFTRIAXONE 1 G in NS 100 ML IV SCH (13:01)
[2018-03-01] MEDS: ROSUVASTATIN 10 MG TABLET PO SCH (20:44)
[2018-03-01] MEDS: PRAZOSIN 1 MG CAPSULE PO SCH (20:44)
[2018-03-01] MEDS: DONEPEZIL 10 MG TABLET PO SCH (20:45)
[2018-03-02] MEDS: ALBUTEROL/IPRATROPIUM 2.5mg-0.5mg/3ml NEB AEROSOL SCH ×4 (06:38→19:20)
[2018-03-02] MEDS: MEMANTINE 10 MG TABLET PO SCH ×2 (08:47→21:28)
[2018-03-02] MEDS: CITALOPRAM 10 MG TABLET PO SCH (08:47)
[2018-03-02] MEDS: ACETAMINOPHEN 500 MG TABLET PO SCH ×3 (08:47→21:29)
[2018-03-02] MEDS: CLOTRIMAZOLE 10 MG TROCHE MM SCH ×5 (08:47→21:28)
[2018-03-02] MEDS: AMLODIPINE 5 MG TABLET PO SCH (08:47)
[2018-03-02] MEDS: PANTOPRAZOLE 40 MG INJECTION IVP SCH (08:47)
[2018-03-02] MEDS: CEFTRIAXONE 1 G in NS 100 ML IV SCH (08:47)
[2018-03-02] MEDS: DOCUSATE SODIUM 100 MG CAPSULE PO SCH ×2 (08:48→21:29)
[2018-03-02] MEDS: SALINE FLUSH 10ml SYRINGE IV PRN (08:49)
[2018-03-02] MEDS: POLYETHYL GLYCOL 3350 17gm PACKET PO SCH (08:49)
--- NOTE | 2018-03-02 09:51 | XRay Report ---
Indication: F/U PROCEDURE: XR chest 1V: Encounter: Initial Comparison: 02/27/2018 Findings: There is moderate elevation of the right diaphragm, similar to prior exam. There is some clearing of the left lung base without definite lobar consolidation or pleural effusion. There is prominence of the cardiac silhouette which may be accentuated by the AP portable technique. Impression: Persistent elevation of the right diaphragm. No definite lobar consolidation or pleural effusion. .
--- NOTE | 2018-03-02 10:55 | Progress Note ---
- Date 03/02/18 Subjective: F/U: Severe Sepsis, UTI, complicated, HCAP-with likely aspiration Sitting up in chair. Sleepy, but will awaken and answer questions. Daughter in room with patient and report this is essentially her baseline. Did talk with speech-taking nutritional supplements well but not interested in food. Daughter reports did take more food in this am. Breathing well. Not having pain. Objective Vital signs: Temperature 96.9 F 03/02/18 08:00 Pulse Rate 88 03/02/18 08:00 Respiratory Rate 17 03/02/18 08:00 Blood Pressure 129/71 03/02/18 08:00 Pulse Oximetry 92 03/02/18 08:00 Height/Weight/BMI: Height 1.6 m Weight 74 kg Body Mass Index 29.1 - Constitutional Present: well nourished, well developed, average body habitus, cooperative. Absent: combative, agitated - Routine HEENT Exam Head: Present: normocephalic, atraumatic Eye: Present: EOMI, PERRL ENT: Present: mucous membranes moist - Routine Respiratory Exam Present: decreased breath sounds. Absent: rales, respiratory distress, rhonchi , wheezes, crackles - Routine Cardiovascular Exam Present: RRR, no murmur - Routine Abdominal Exam Present: soft, normoactive bowel sounds, non distended, non tender. Absent: guarding - Routine Extremities Exam Present: no edema, pulses intact. Absent: cyanosis, clubbing - Routine Musculoskeletal Exam Musculoskeletal: Present: no clubbing or cyanosis - Routine Skin Exam Present: dry, warm - Routine Neurological Exam Present: alert, CN II-XII intact, vision grossly intact, hearing grossly intact - Routine Psychiatric Exam Present: cooperative. Absent: anxious, agitated Results - Labs CBC & Chem 7: 03/02/18 04:11 03/02/18 04:11 Microbiology Results: Microbiology 03/01/18 05:01 Peripheral/Iv Start Blood Culture - Preliminary No Growth After 1 Day 03/01/18 05:01 Peripheral/Iv Start Blood Culture - Preliminary No Growth After 1 Day Assessment and Plan (1) Severe sepsis Current visit: Yes Status: Acute Assessment and Plan: Assessment Severe Sepsis UTI, complicated, Proteus mirabilis growing Septicemia with Proteus mirabilis (2 of 2 BC positive from admit) HCAP, with likely aspiration Leukocytosis (POA) Thrush (Not POA) Hypernatremia (POA) Hypokalemia (Not POA) Advanced dementia with behavioral dyscontrol Acute respiratory insufficiency Altered mental status HTN DLD Chronic dysphagia Suspected chronic aspiration Plan Mentation approaching baseline. Oral intake gradually increasing. WBC normalized at 7.5. Procalcitonin decreased to 3.73. Potassium low at 3.5. Continue ceftriaxone for coverage of Proteus. Additional oral potassium 20mEq x2 to help normalize potassium. Will discontinue Kowalski cath. Encourage oral intake. Recheck CBC in am due to resolving sepsis and leukocytosis. Will recheck BMP in am due to hypernatremia and hypokalemia. Case discussed with speech therapy, CM, and pt's daughter. Care plans discussed. Time spent with patient care 25 minutes. DVT Prophylaxis: SCD's Resuscitation Status: Do Not Resuscitate - Time spent with patient Time with patient PN: 25 minutes - Physician Narrative Physician: Ryder Briones MD Narrative: Date: 03/02/18 Time: 1051 Hospital Course Summary Disclaimer: The visit summary below is not to be considered part of the above Progress Note. Hospital Course: 02/26/18 Inpatient admission, CCU Admit- Inpatient, ICU admission. D/W Dr. Godwin Severe sepsis- Urine and pulm sources likely. Core measures for sepsis. Will need to use caution for fluid overload. She is audibly wheezy, give Lasix x 1 now. Add nebs for PRN use. Add broad spectrum abx- use Zosyn/Vanco due to concern for aspiration and UTI. Avoid Quinolone due to advanced age, risk for sz and behavior changes. BC done. Urine cx. done. NPO. O2 to support sats. Likely recurrent Aspiration- Abx as above. NPO. Consider ST screen if patient improves. *Advanced dementia- cautious medical support. No advanced supportive measures. Call before starting bipap. 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 DNR confirmed. Add PPI/SCDs for px. 02/27/18 Continue with Zosyn and vancomycin for antimicrobial coverage. Speech working with swallow function - family against feeding tube. Will restart oral medications - hold BP medications at this time as BP recovering. Recheck CBC in am due to leukocytosis and sepsis-recheck Procalcitonin. Repeat BMP in am due to medication use. 02/28/18 Blood and urine cultures growing Proteus mirabilis, can continue with Zosyn but stop vancomycin. WBC and procalcitonin decreasing. More awake and alert. Continue speech therapy to maximize swallow function. BP showing elevation to 140s to 150s - will continue to hold BP medications due to resolving severe sepsis. Clinically making gains, can transfer to medical floor for continuation of care. 03/01/18 More awake and alert. Oral drive increasing slowly. WBC decreasing. Will change to ceftriaxone for coverage of Proteus. Start Mycelex for thrush. PT/OT for active/passive ROM modalities. Oral potassium 20mEq x1 as potassium with decrease. Can restart home antihypertensives as BP elevated and severe sepsis resolving. Encourage oral intake. 03/02/18 Mentation approaching baseline. Oral intake gradually increasing. WBC normalized at 7.5. Procalcitonin decreased to 3.73. Potassium low at 3.5. Continue ceftriaxone for coverage of Proteus. Additional oral potassium 20mEq x2 to help normalize potassium. Will discontinue Kowalski cath. Encourage oral intake.
[2018-03-02] MEDS: ROSUVASTATIN 10 MG TABLET PO SCH (21:27)
[2018-03-02] MEDS: DONEPEZIL 10 MG TABLET PO SCH (21:28)
[2018-03-02] MEDS: PRAZOSIN 1 MG CAPSULE PO SCH (21:29)
[2018-03-03] MEDS: ALBUTEROL/IPRATROPIUM 2.5mg-0.5mg/3ml NEB AEROSOL SCH ×4 (07:05→19:02)
[2018-03-03] MEDS: CEFTRIAXONE 1 G in NS 100 ML IV SCH (08:26)
[2018-03-03] MEDS: CITALOPRAM 10 MG TABLET PO SCH (08:27)
[2018-03-03] MEDS: DOCUSATE SODIUM 100 MG CAPSULE PO SCH ×2 (08:27→21:25)
[2018-03-03] MEDS: POLYETHYL GLYCOL 3350 17gm PACKET PO SCH (08:27)
[2018-03-03] MEDS: SALINE FLUSH 10ml SYRINGE IV PRN (08:27)
[2018-03-03] MEDS: AMLODIPINE 5 MG TABLET PO SCH (08:27)
[2018-03-03] MEDS: ACETAMINOPHEN 500 MG TABLET PO SCH ×3 (08:27→21:27)
[2018-03-03] MEDS: PANTOPRAZOLE 40 MG INJECTION IVP SCH (08:27)
[2018-03-03] MEDS: MEMANTINE 10 MG TABLET PO SCH ×2 (08:27→21:26)
[2018-03-03] MEDS: CLOTRIMAZOLE 10 MG TROCHE MM SCH ×5 (08:27→21:27)
--- NOTE | 2018-03-03 10:20 | Progress Note ---
- Date 03/03/18 Subjective: F/U: Severe Sepsis, UTI, complicated, HCAP-with likely aspiration Improving. Oral drive increasing-taking in more foods. No nausea, but reports pain to right lower ab. Has been passing stools per nursing notes. No mouth pain. Breathing well. Moving well-therapy did see pt yesterday and gave her activities to do in chair. WBC decreased. Awake and alert. Objective Vital signs: Temperature 98.1 F 03/03/18 07:32 Pulse Rate 96 03/03/18 08:00 Respiratory Rate 16 03/03/18 07:32 Blood Pressure 126/65 03/03/18 07:32 Pulse Oximetry 92 03/03/18 07:32 Height/Weight/BMI: Height 1.6 m Weight 74.7 kg Body Mass Index 29.1 - Constitutional Present: well nourished, well developed, average body habitus, cooperative. Absent: combative, agitated, somnolent - Routine HEENT Exam Head: Present: normocephalic, atraumatic Eye: Present: EOMI, PERRL, normal accommodation - Routine Respiratory Exam Present: decreased breath sounds. Absent: rales, respiratory distress, rhonchi , wheezes - Routine Cardiovascular Exam Present: RRR, no murmur - Routine Abdominal Exam Present: soft, normoactive bowel sounds, non distended, non tender. Absent: guarding - Routine Extremities Exam Present: no edema, pulses intact. Absent: cyanosis, clubbing Comments: SCD in place - Routine Musculoskeletal Exam Musculoskeletal: Absent: no clubbing or cyanosis - Routine Skin Exam Present: dry, warm - Routine Neurological Exam Present: alert, CN II-XII intact, moving all extremities, vision grossly intact , hearing grossly intact. Absent: motor deficit, altered mental status - Routine Psychiatric Exam Present: normal affect, cooperative. Absent: anxious, agitated Results - Labs CBC & Chem 7: 03/03/18 04:54 03/03/18 04:54 Microbiology Results: Microbiology 03/01/18 05:01 Peripheral/Iv Start Blood Culture - Preliminary No Growth After 2 Days 03/01/18 05:01 Peripheral/Iv Start Blood Culture - Preliminary No Growth After 2 Days Assessment and Plan (1) Severe sepsis Current visit: Yes Status: Acute Assessment and Plan: Assessment Severe Sepsis UTI, complicated, Proteus mirabilis growing Septicemia with Proteus mirabilis (2 of 2 BC positive from admit) HCAP, with likely aspiration Leukocytosis (POA) Thrush (Not POA) Hypernatremia (POA) Hypokalemia (Not POA) Advanced dementia with behavioral dyscontrol Acute respiratory insufficiency Altered mental status HTN DLD Chronic dysphagia Suspected chronic aspiration Plan Continue ceftriaxone for coverage of Proteus - Day 5 of antibiotics. Repeat BC without growth. Encourage oral intake and physical movement. Possible discharge tomorrow if continues to do well. Recheck CBC and procalcitonin in am due to resolving sepsis. Will recheck BMP in am due to hypernatremia and hypokalemia. Case discussed with CM, and pt's daughter. Care plans discussed. Time spent with patient care 25 minutes. DVT Prophylaxis: SCD's Resuscitation Status: Do Not Resuscitate - Time spent with patient Time with patient PN: 25 minutes - Physician Narrative Physician: Ryder Briones MD Narrative: Date: 03/03/18 Time: 1017 Hospital Course Summary Disclaimer: The visit summary below is not to be considered part of the above Progress Note. Hospital Course: 02/26/18 Inpatient admission, CCU Admit- Inpatient, ICU admission. D/W Dr. Godwin Severe sepsis- Urine and pulm sources likely. Core measures for sepsis. Will need to use caution for fluid overload. She is audibly wheezy, give Lasix x 1 now. Add nebs for PRN use. Add broad spectrum abx- use Zosyn/Vanco due to concern for aspiration and UTI. Avoid Quinolone due to advanced age, risk for sz and behavior changes. BC done. Urine cx. done. NPO. O2 to support sats. Likely recurrent Aspiration- Abx as above. NPO. Consider ST screen if patient improves. *Advanced dementia- cautious medical support. No advanced supportive measures. Call before starting bipap. 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 DNR confirmed. Add PPI/SCDs for px. 02/27/18 Continue with Zosyn and vancomycin for antimicrobial coverage. Speech working with swallow function - family against feeding tube. Will restart oral medications - hold BP medications at this time as BP recovering. Recheck CBC in am due to leukocytosis and sepsis-recheck Procalcitonin. Repeat BMP in am due to medication use. 02/28/18 Blood and urine cultures growing Proteus mirabilis, can continue with Zosyn but stop vancomycin. WBC and procalcitonin decreasing. More awake and alert. Continue speech therapy to maximize swallow function. BP showing elevation to 140s to 150s - will continue to hold BP medications due to resolving severe sepsis. Clinically making gains, can transfer to medical floor for continuation of care. 03/01/18 More awake and alert. Oral drive increasing slowly. WBC decreasing. Will change to ceftriaxone for coverage of Proteus. Start Mycelex for thrush. PT/OT for active/passive ROM modalities. Oral potassium 20mEq x1 as potassium with decrease. Can restart home antihypertensives as BP elevated and severe sepsis resolving. Encourage oral intake. 03/02/18 Mentation approaching baseline. Oral intake gradually increasing. WBC normalized at 7.5. Procalcitonin decreased to 3.73. Potassium low at 3.5. Continue ceftriaxone for coverage of Proteus. Additional oral potassium 20mEq x2 to help normalize potassium. Will discontinue Kowalski cath. Encourage oral intake. 03/03/18 Continue ceftriaxone for coverage of Proteus - Day 5 of antibiotics. Repeat BC without growth. Encourage oral intake and physical movement. Possible discharge tomorrow if continues to do well.
[2018-03-03] MEDS: ROSUVASTATIN 10 MG TABLET PO SCH (21:25)
[2018-03-03] MEDS: DONEPEZIL 10 MG TABLET PO SCH (21:26)
[2018-03-03] MEDS: PRAZOSIN 1 MG CAPSULE PO SCH (21:27)
[2018-03-04] MEDS: ALBUTEROL/IPRATROPIUM 2.5mg-0.5mg/3ml NEB AEROSOL SCH ×2 (06:53→10:37)
[2018-03-04 07:26] VITALS: BP 143/74; PULSE 93; TEMP 98.4; O2SAT 92
[2018-03-04] MEDS: DOCUSATE SODIUM 100 MG CAPSULE PO SCH (08:43)
[2018-03-04] MEDS: POLYETHYL GLYCOL 3350 17gm PACKET PO SCH (08:43)
[2018-03-04] MEDS: MEMANTINE 10 MG TABLET PO SCH (08:53)
[2018-03-04] MEDS: CITALOPRAM 10 MG TABLET PO SCH (08:53)
[2018-03-04] MEDS: CLOTRIMAZOLE 10 MG TROCHE MM SCH ×2 (08:53→11:04)
[2018-03-04] MEDS: CEFTRIAXONE 1 G in NS 100 ML IV SCH (08:53)
[2018-03-04] MEDS: AMLODIPINE 5 MG TABLET PO SCH (08:53)
[2018-03-04] MEDS: ACETAMINOPHEN 500 MG TABLET PO SCH (08:53)
--- NOTE | 2018-03-04 10:00 | Progress Note ---
- Date 03/04/18 Subjective: F/U: Severe Sepsis, UTI, complicated, HCAP-with likely aspiration Doing well this morning. Sitting up in chair - awake and alert. Eating well. Breathing well. No f/c. WBC normal, Procalcitonin normal. Daughter at bedside. Objective Vital signs: Temperature 98.4 F 03/04/18 07:24 Pulse Rate 93 03/04/18 07:24 Respiratory Rate 18 03/04/18 07:24 Blood Pressure 143/74 H 03/04/18 07:24 Pulse Oximetry 92 03/04/18 07:24 Height/Weight/BMI: Height 1.6 m Weight 72.4 kg Body Mass Index 29.1 - Constitutional Present: well nourished, well developed, average body habitus, cooperative. Absent: combative, agitated, somnolent - Routine HEENT Exam Head: Present: normocephalic, atraumatic Eye: Present: EOMI, PERRL ENT: Present: mucous membranes moist (No thrush) - Routine Respiratory Exam Present: decreased breath sounds. Absent: rales, respiratory distress, rhonchi , stridor, wheezes, crackles - Routine Cardiovascular Exam Present: RRR, no murmur - Routine Abdominal Exam Present: soft, normoactive bowel sounds, non distended, non tender. Absent: guarding - Routine Extremities Exam Present: no edema, pulses intact. Absent: cyanosis, clubbing Comments: SCD in place - Routine Musculoskeletal Exam Musculoskeletal: Present: no clubbing or cyanosis - Routine Skin Exam Present: dry, warm - Routine Neurological Exam Present: alert, CN II-XII intact, moving all extremities, vision grossly intact , hearing grossly intact. Absent: altered mental status - Routine Psychiatric Exam Present: normal affect, cooperative. Absent: anxious, agitated Results - Labs CBC & Chem 7: 03/04/18 04:53 03/04/18 04:53 Microbiology Results: Microbiology 03/01/18 05:01 Peripheral/Iv Start Blood Culture - Preliminary No Growth After 3 Days 03/01/18 05:01 Peripheral/Iv Start Blood Culture - Preliminary No Growth After 3 Days Assessment and Plan (1) Severe sepsis Current visit: Yes Status: Acute Assessment and Plan: Assessment Severe Sepsis UTI, complicated, Proteus mirabilis growing Septicemia with Proteus mirabilis (2 of 2 BC positive from admit) HCAP, with likely aspiration Leukocytosis (POA) Thrush (Not POA) Hypernatremia (POA) Hypokalemia (Not POA) Advanced dementia with behavioral dyscontrol Acute respiratory insufficiency Altered mental status HTN DLD Chronic dysphagia Suspected chronic aspiration Plan Clinically improved. Can discharge to [place] for skilled care. Will initiate cephalexin 500mg TID for 8 days. Continue Mycelex while on antibiotics due to resolved thrush. Speech to work with patient to help swallow. PT/OT to improve functional status. F/U with Dr Bell in 1 week. See orders for details. Case discussed with CM, and pt's daughter. Time spent with patient care and discharge greater than 30 minutes. DVT Prophylaxis: SCD's Resuscitation Status: Do Not Resuscitate - Physician Narrative Physician: Ryder Briones MD Narrative: Date: 03/04/18 Time: 956 Hospital Course Summary Disclaimer: The visit summary below is not to be considered part of the above Progress Note. Hospital Course: 02/26/18 Inpatient admission, CCU Admit- Inpatient, ICU admission. D/W Dr. Godwin Severe sepsis- Urine and pulm sources likely. Core measures for sepsis. Will need to use caution for fluid overload. She is audibly wheezy, give Lasix x 1 now. Add nebs for PRN use. Add broad spectrum abx- use Zosyn/Vanco due to concern for aspiration and UTI. Avoid Quinolone due to advanced age, risk for sz and behavior changes. BC done. Urine cx. done. NPO. O2 to support sats. Likely recurrent Aspiration- Abx as above. NPO. Consider ST screen if patient improves. *Advanced dementia- cautious medical support. No advanced supportive measures. Call before starting bipap. 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 DNR confirmed. Add PPI/SCDs for px. 02/27/18 Continue with Zosyn and vancomycin for antimicrobial coverage. Speech working with swallow function - family against feeding tube. Will restart oral medications - hold BP medications at this time as BP recovering. Recheck CBC in am due to leukocytosis and sepsis-recheck Procalcitonin. Repeat BMP in am due to medication use. 02/28/18 Blood and urine cultures growing Proteus mirabilis, can continue with Zosyn but stop vancomycin. WBC and procalcitonin decreasing. More awake and alert. Continue speech therapy to maximize swallow function. BP showing elevation to 140s to 150s - will continue to hold BP medications due to resolving severe sepsis. Clinically making gains, can transfer to medical floor for continuation of care. 03/01/18 More awake and alert. Oral drive increasing slowly. WBC decreasing. Will change to ceftriaxone for coverage of Proteus. Start Mycelex for thrush. PT/OT for active/passive ROM modalities. Oral potassium 20mEq x1 as potassium with decrease. Can restart home antihypertensives as BP elevated and severe sepsis resolving. Encourage oral intake. 03/02/18 Mentation approaching baseline. Oral intake gradually increasing. WBC normalized at 7.5. Procalcitonin decreased to 3.73. Potassium low at 3.5. Continue ceftriaxone for coverage of Proteus. Additional oral potassium 20mEq x2 to help normalize potassium. Will discontinue Kowalski cath. Encourage oral intake. 03/03/18 Continue ceftriaxone for coverage of Proteus - Day 5 of antibiotics. Repeat BC without growth. Encourage oral intake and physical movement. Possible discharge tomorrow if continues to do well. 03/04/18 Clinically improved. Can discharge to [place] for skilled care. Will initiate cephalexin 500mg TID for 8 days. Continue Mycelex while on antibiotics due to resolved thrush. Speech to work with patient to help swallow. PT/OT to improve functional status. F/U with Dr Bell in 1 week. See orders for details.
--- NOTE | 2018-03-04 10:10 | Extended Care Facility Orders ---
Admission Orders Admit to:: Nursing Home Allergies/Adverse Reactions: Allergies No Known Allergies Allergy (Verified 02/26/18 09:44) Admitting Diagnosis: UTI Admitting Physician: Ryder Briones MD Attending Physician: Dr Bell Code Status: Do Not Resuscitate Anticiapted Length of Stay: 30 days or less Rehab Potential: fair Rehab Prognosis: fair Diet: Regular/soft diet with regular liquids. Pt would benefit from occasional supervision during meals to adhere to the following precautions: 1. The pt must be cued to fully chew her food and use a dry swallow following each bite 2. The pt must take small bites/sips at a slow rate 3. Recommend liquids at the beginning or end of meal rather than alternating May use Facility Protocol or Standing Orders: Yes May have flu vaccine: Yes Evaluations/Treatment: Speech (Dysphagia), PT, OT Nursing Home Certification: I certify that SNF services are required to be given on an Inpatient basis because of the patients need for [facility] care on a continuing basis for the condition(s) for which he/she received inpatient hospital services prior to his/her transfer to the SNF. SNF inpatient care is necessary for the following reasons Indication for Nursing Home: Med Admininistration, Other (Skilled PT/Speech. snf to monitor cardiopulmonary status. ) - Additional Information In Event of Arrest: Do Not Start CPR Resident is Aware of Diagnosis: No ([place] limits) Referrals: Abilio Bell MD [Primary Care Provider] - 1 Week (Hospital follow up in 1 week. )
--- NOTE | 2018-03-04 10:16 | Discharge Summary ---
Discharge Information Date of admission: 02/26/18 11:51 Anticipated date of discharge: 03/04/18 Attending Physician: Ryder Briones MD Primary care physician: Abilio Bell MD Consults: Speech Therapy PT/OT - Discharge Diagnosis (1) Severe sepsis Status: Acute (2) Septicemia Status: Acute Discharge diagnosis Severe Sepsis Associated conditions and complications UTI, complicated, Proteus mirabilis growing Septicemia with Proteus mirabilis (2 of 2 BC positive from admit) HCAP, with likely aspiration Leukocytosis (POA) Thrush (Not POA) Hypernatremia (POA) Hypokalemia (Not POA) Advanced dementia with behavioral dyscontrol Acute respiratory insufficiency Altered mental status HTN DLD Chronic dysphagia Suspected chronic aspiration - Laboratory Labs: Admit Lab 02/26/18 09:29 WBC 26.8 H* Hgb 13.3 Hct 39.5 Plt Count 169 Neutrophils % (Manual) 70.0 H Band Neutrophils % 26.0 H Monocytes % (Manual) 3.0 Metamyelocytes % 1.0 H Admit Lab 02/26/18 02/26/18 09:29 09:55 Sodium 146 H Potassium 3.8 Chloride 112 H Carbon Dioxide 24 Anion Gap 10 BUN 24.0 H Creatinine 1.2 GFR Calculation 42 BUN/Creatinine Ratio 20 Glucose 122 H Calculated Osmolality 286 H Calcium 8.6 Total Bilirubin 0.30 AST 28 ALT 22 Alkaline Phosphatase 42 Troponin I < 0.012 Total Protein 6.2 L Albumin 3.7 Globulin 2.5 Albumin/Globulin Ratio 1.5 Plasma Lactate 3.0 H Procalcitonin 50.92 H* 03/04/18 04:53 03/04/18 04:53 - Microbiology Microbiology 03/01/18 05:01 Peripheral/Iv Start Blood Culture - Preliminary No Growth After 3 Days 03/01/18 05:01 Peripheral/Iv Start Blood Culture - Preliminary No Growth After 3 Days - Radiology Radiology: Date of Exam: 02/26/18 Type of Exam: XR chest 1V Findings: Lungs remain hypoinflated with an elevated right hemidiaphragm. Airspace disease in the lower lobes is difficult to exclude. No pneumothorax or obvious pleural effusion. Visualized heart border appears stable. Mediastinal contours are grossly stable. Pulmonary vascularity is stable. Impression: Low lung volumes making evaluation of the lung bases difficult. No obvious focal pneumonia. Date of Exam: 02/26/18 Type of Exam: CT head/brain wo con FINDINGS: Moderate atrophy. The ventricles are of normal size, shape, and contour for the patient's age. There are scattered areas of low attenuation in the white matter which most likely represent changes from chronic microvascular ischemia. The brainstem, cerebellum, and cerebral hemispheres otherwise have a normal morphology and CT attenuation. There is no evidence of midline displacement. No hemorrhage, signs of acute territorial stroke, mass effect, mass lesions, or edema is evident. The visualized portions of the skull base, midface, and calvarium demonstrate no abnormality. Significant opacification of the left maxillary sinus with high attenuation secretions. The tympanic and mastoid cavities appear normal. IMPRESSION: No acute intracranial abnormality or hemorrhage. Left maxillary sinusitis. Date of Exam: 02/27/18 Type of Exam: XR chest 1V Findings: Lungs remain hypoinflated with prominent interstitial markings. Increasing lower lobe airspace disease on the right. No pneumothorax. Heart size and mediastinal contours are stable. Impression: Worsening right lower lobe airspace disease could be due to atelectasis, pneumonia or aspiration. Date of Exam: 03/02/18 Type of Exam: XR chest 1V Findings: There is moderate elevation of the right diaphragm, similar to prior exam. There is some clearing of the left lung base without definite lobar consolidation or pleural effusion. There is prominence of the cardiac silhouette which may be accentuated by the AP portable technique. Impression: Persistent elevation of the right diaphragm. No definite lobar consolidation or pleural effusion. History of Present Illness HPI: Ian is an 87 yo AF with a history of dementia/behavioral dyscontrol that reside in [place]. 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 Due to progression of her dementia, she is now in the LTC facility. She is lethargic and does not respond well to stimuli. History is obtained from old records, and her daughter as well. Patient was noted to be lethargic this morning per ER records. She was brought into the ER due to her symptoms, as well as a fever. She has been found to be acutely septic with symptoms of septic shock. She has been started on sepsis protocol, and is being admitted to the ICU. Initial diagnosis in the ER has been UTI, however, her CXR is also concerning for a pulmonary source of infection. Upon further discussion with the daughter, she reports that her mother has had several episodes of a persistent cough. Initially resolved spontaneously, but has most recently required nebulizer treatments to help her symptoms. She does not routinely visit at mealtimes, and staff has not reported a cough, however, daughter has been notified by another resident that the patient "chokes a lot at meals." She does not believe patient has a prior diagnosis of heart issues or heart failure. Has not been evaluated by cardiology. No recent issues with edema reported. We discussed diagnosis of sepsis and plan/wishes of care. Patient is a full DNR. Daughter reports that patient was very clear when she was well that she did not want advanced life support measures, did not wish to be sustained w/o quality of life, and would not want overly aggressive measures. We discussed current status, possible means of support: -Full DNR, no intubation. -Questionable Bipap- D/W daughter before starting if needed. -No pressors. -No feeding tubes of any type. Daughter is supportive of more conservative means of treatment with goal of quality of life at this point. She is agreeable to supportive treatment of infection with monitoring of progress. For complete details of the H&P refer to that document. Objective Vital signs: Temperature 98.4 F 03/04/18 07:24 Pulse Rate 93 03/04/18 07:24 Respiratory Rate 18 03/04/18 07:24 Blood Pressure 143/74 H 03/04/18 07:24 Pulse Oximetry 92 03/04/18 07:24 Height/Weight/BMI: Height 1.6 m Weight 72.4 kg Body Mass Index 29.1 Hospital Course This is a general summary of the patient's hospital course. For more details refer to the complete medical record. Hospital course: 02/26/18 Inpatient admission, CCU Admit- Inpatient, ICU admission. D/W Dr. Godwin Severe sepsis- Urine and pulm sources likely. Core measures for sepsis. Will need to use caution for fluid overload. She is audibly wheezy, give Lasix x 1 now. Add nebs for PRN use. Add broad spectrum abx- use Zosyn/Vanco due to concern for aspiration and UTI. Avoid Quinolone due to advanced age, risk for sz and behavior changes. BC done. Urine cx. done. NPO. O2 to support sats. Likely recurrent Aspiration- Abx as above. NPO. Consider ST screen if patient improves. *Advanced dementia- cautious medical support. No advanced supportive measures. Call before starting bipap. 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 DNR confirmed. Add PPI/SCDs for px. 02/27/18 Continue with Zosyn and vancomycin for antimicrobial coverage. Speech working with swallow function - family against feeding tube. Will restart oral medications - hold BP medications at this time as BP recovering. Recheck CBC in am due to leukocytosis and sepsis-recheck Procalcitonin. Repeat BMP in am due to medication use. 02/28/18 Blood and urine cultures growing Proteus mirabilis, can continue with Zosyn but stop vancomycin. WBC and procalcitonin decreasing. More awake and alert. Continue speech therapy to maximize swallow function. BP showing elevation to 140s to 150s - will continue to hold BP medications due to resolving severe sepsis. Clinically making gains, can transfer to medical floor for continuation of care. 03/01/18 More awake and alert. Oral drive increasing slowly. WBC decreasing. Will change to ceftriaxone for coverage of Proteus. Start Mycelex for thrush. PT/OT for active/passive ROM modalities. Oral potassium 20mEq x1 as potassium with decrease. Can restart home antihypertensives as BP elevated and severe sepsis resolving. Encourage oral intake. 03/02/18 Mentation approaching baseline. Oral intake gradually increasing. WBC normalized at 7.5. Procalcitonin decreased to 3.73. Potassium low at 3.5. Continue ceftriaxone for coverage of Proteus. Additional oral potassium 20mEq x2 to help normalize potassium. Will discontinue Kowalski cath. Encourage oral intake. 03/03/18 Continue ceftriaxone for coverage of Proteus - Day 5 of antibiotics. Repeat BC without growth. Encourage oral intake and physical movement. Possible discharge tomorrow if continues to do well. 03/04/18 Clinically improved. Can discharge to [facility] for skilled care. Will initiate cephalexin 500mg TID for 8 days. Continue Mycelex while on antibiotics due to resolved thrush. Speech to work with patient to help swallow. PT/OT to improve functional status. Speech recommendations: Regular/soft diet with regular liquids. Pt would benefit from occasional supervision during meals to adhere to the following precautions: 1. The pt must be cued to fully chew her food and use a dry swallow following each bite 2. The pt must take small bites/sips at a slow rate 3. Recommend liquids at the beginning or end of meal rather than alternating F/U with Dr Bell in 1 week. See orders for details. Time spent with patient: discharge greater than 30 minutes Resuscitation Status: Do Not Resuscitate Discharge Plan - Discharge Disposition Discharge Date: 03/04/18 Disposition: 03 To [facility] ([facility]) *Condition: Stable Reason For Visit (Visit label in EMR): UTI - Discharge Medications *Discharge Medications: New CephALEXin [Keflex 500 mg] 500 mg PO TID #24 cap Clotrimazole Ingrid [Mycelex Ingrid] 10 mg MM 5XD #40 ingrid Continue Guaifenesin/Dextromethorphan [Tussin Dm Syrup] 10 ml PO Q4H PRN PRN Reason: Cough /Congestion Prazosin [Minipress] 1 mg PO HS Alendronate [Fosamax] 70 mg PO Q7D Rosuvastatin [Crestor] 10 mg PO HS Donepezil HCl [Aricept] 10 mg PO HS Calcium Carbonate/Vitamin D3 [Caltrate 600 Plus D3 Tablet] 1 tab PO BID Dextromethorphan HBr [Tussin Cough] 30 mg PO Q4H PRN PRN Reason: Cough Multivitamin [One Daily] 1 each PO DAILY Clotrimazole [Antifungal] 1 applicatio TOP Q8H Citalopram [Celexa] 10 mg PO DAILY Milk of Magnesia [Mom] 30 ml PO DAILY PRN PRN Reason: Constipation Acetaminophen 325 - 650 mg PO Q5H PRN PRN Reason: Pain Polyethylene Glycol 3350 [Smoothlax] 17 gm PO DAILY Amlodipine Besylate [Norvasc] 5 mg PO DAILY 30 Days #0 tab Bisacodyl Supp [Dulcolax] 10 mg RECTALLY DAILY PRN PRN Reason: Constipation Memantine [Namenda] 10 mg PO BID Acetaminophen [Acetaminophen Extra Strength] 500 mg PO TID Docusate Sodium [Colace] 100 mg PO BID - Discharge Packet/Instructions *Diet: Regular/soft diet with regular liquids. Pt would benefit from occasional supervision during meals to adhere to the following precautions: 1. The pt must be cued to fully chew her food and use a dry swallow following each bite. 2. The pt must take small bites/sips at a slow rate. 3. Recommend liquids at the beginning or end of meal rather than alternating *Activity: As tolerated *Pain Management/Treatment: Tylenol as needed. *Wound Care: N/A *Expected Signs/Symptoms: Improvement of strenght and appetite *Notify Physician if: Temp >100.4. Increased Shortness of breath. *During Business Hours Contact: Nursing staff at [facility] *After Business Hours Contact: Nursing staff at [facility] *Pending Lab/Results: No Pending Lab - Referrals/Follow Up *Referrals/Follow Up: Abilio Bell MD [Primary Care Provider] - 1 Week (Hospital follow up in 1 week. ) - Patient Handouts Patient Handouts: Urinary Tract Infection in Women (GEN) - Dismissal Complete Discharge Instructions are:: Complete Physician Narrative - Narrative Physician: Ryder Briones MD Attestation Narrative: Date: 03/04/18 Time: 1011 I have independently interviewed and examined prior to discharge. See my progress note from today for details. Medically stable for discharge to skilled.
[2018-03-04 10:42] VITALS: RESP 20
== END 2018-03-04 11:55 | DRG 871 ==
LOC: ED 09:22 → CCU 11:51 → SUATTDRO 11:51 → CCU 12:00 → MED 02-28 11:00
PROVIDERS: ADMIT Hospitalist; ATTEND Hospitalist

== ENCOUNTER 2018-03-12 10:32 | Inpatient (IN) ==
[2018-03-12] MEDS ORDERED: CEFEPIME 1 GM in NS 100 ML IV ONE (10:38)
--- NOTE | 2018-03-12 10:56 | Emergency Department Report ---
Fever HPI - General Chief Complaint: Fever Stated Complaint: fever, no oral intake Time Seen by Provider: 03/12/18 10:33 Source: patient, EMS, RN notes reviewed, old records reviewed Mode of arrival: EMS Limitations: altered mental status - History of Present Illness HPI Narrative: 87yo woman presents to the ER by EMS for concerns of fever, difficulty swallowing, and possible recurrent UTI. Pt was recently released from this facility after an inpt stay for pyelo. Today, she was found with a temp of 104' F and difficulty eating at her NH. Pt has a h/o UTI, so they assumed she was having another UTI. EMS was contacted to transport pt for further eval. MD complaint: fever Onset (ago): hour(s) Temperature Source: oral Context: recent antibiotic use Associated symptoms: denies other symptoms Relieving factors: acetaminophen Exacerbating factors: nothing Treatments prior to arrival fever: acetaminophen - Related Data Home Medications Medication Instructions Recorded Confirmed Acetaminophen [Acetaminophen Extra 500 mg PO TID 08/06/17 03/12/18 Strength] Alendronate [Fosamax] 70 mg PO Q7D 08/06/17 03/12/18 Bisacodyl Supp [Dulcolax] 10 mg RECTALLY DAILY PRN 08/06/17 03/12/18 Calcium Carbonate/Vitamin D3 1 tab PO BID 08/06/17 03/12/18 [Caltrate 600 Plus D3 Tablet] Dextromethorphan HBr [Tussin Cough] 10 ml PO Q4H PRN 08/06/17 03/12/18 Donepezil HCl [Aricept] 10 mg PO HS 08/06/17 03/12/18 Memantine [Namenda] 10 mg PO BID 08/06/17 03/12/18 Prazosin [Minipress] 1 mg PO HS 08/06/17 03/12/18 Rosuvastatin [Crestor] 10 mg PO HS 08/06/17 03/12/18 Acetaminophen 325 mg PO Q5H PRN 02/26/18 03/12/18 Citalopram [Celexa] 10 mg PO DAILY 02/26/18 03/12/18 Docusate Sodium [Colace] 100 mg PO BID 02/26/18 03/12/18 Milk of Magnesia [Mom] 30 ml PO DAILY PRN 02/26/18 03/12/18 Multivitamin [One Daily] 1 each PO DAILY 02/26/18 03/12/18 Polyethylene Glycol 3350 17 gm PO DAILY 02/26/18 03/12/18 [Smoothlax] Miconazole Nitrate [Antifungal 1 applicatio TOP Q8H 03/12/18 03/12/18 Cream] Previous Rx's Medication Instructions Recorded CephALEXin [Keflex 500 mg] 500 mg PO TID #24 cap 03/04/18 Clotrimazole Ramana [Mycelex 10 mg MM 5XD #40 ramana 03/04/18 Ramana] Allergies Allergy/AdvReac Type Severity Reaction Status Date / Time No Known Allergies Allergy Verified 02/26/18 09:44 Review of Systems All systems: reviewed and negative except as stated Constitutional: Reports: as per HPI, fever. Denies: chills, weakness, weight change, night sweats PFSH Patient Stated Medical History Dementia Yes Other HEENT Yes: WEARS GLASSES Hypertension Yes Depression Yes Medical History Updates: Depression/Anxiety. Dementia with behavioral disturbance. HTN. DLDM. Osteoporosis Surgical History: Hysterectomy. Left hip - Social History Smoking status: Never smoker Substance use type: does not use Alcohol intake frequency: does not drink Housing: custodial Current occupational status: disabled Current occupational exposures/hazards: No Does patient use chewing tobacco?: No Current residence: [place] Physical Exam - Limitations Limitations: altered mental status (Dementia) - General General appearance: alert, in no apparent distress, obese - Normal Exams: Head:: Normocephalic without trauma Eyes:: Pupils are PERRLA w/ EOMI, No scleral icterus, irritation, or foreign bodies noted ENMT:: No facial trauma, nasal exudates, pharyngeal erythema, or exudates are noted Neck:: Full range of motion, without adenopathy Lymphatic:: No lymphadenopathy Musculoskeletal:: No tenderness, or deformity noted Integumentary:: No rashes, hives, or bruising noted Neurological:: Patient is alert, cranial nerves, motor/sensory/cerebellar, exams w/o gross deficits - Chest Chest inspection: Present: normal inspection, symmetric chest wall rise. Absent : tenderness, rash - Respiratory Respiratory exam: Present: normal lung sounds bilaterally. Absent: respiratory distress, wheezes, stridor, prolonged expiratory phase, crackles - Cardiovascular Cardiovascular exam: Present: regular rate, normal rhythm, normal heart sounds. Absent: rubs, gallop, clicks - Psychiatric Psychiatric exam: Present: flat affect Course - Consultations Consultation #1: Hospitalist: Will admit pt for further treatment. Time: 12:33 Vital Signs Temperature 101.7 F H 03/12/18 10:35 Pulse Rate 116 H 03/12/18 10:35 Respiratory Rate 22 03/12/18 10:35 Blood Pressure 156/67 H 03/12/18 10:35 Pulse Oximetry 92 03/12/18 10:35 Temperature 101.7 F H 03/12/18 10:35 Pulse Rate 115 H 03/12/18 11:30 Respiratory Rate 22 03/12/18 10:35 Blood Pressure 135/58 03/12/18 11:30 Pulse Oximetry 90 03/12/18 11:30 Fever - MDM Narrative Medical decision making narrative: Pt with sepsis, likely HCAP as source. Discussed admission/further treatment with hospitalist. Pt to be admitted. - Differential Diagnosis Likely: cellulitis, fever of unknown origin, gastroenteritis, pyelonephritis, viral infection, sepsis - Medical Records Attestation: I reviewed the patient's medical records. - Lab Data Attestation: I reviewed the patient's lab results. Result diagrams: 03/12/18 11:02 03/12/18 11:02 Lab Results 03/12/18 03/12/18 03/12/18 Range/Units 10:54 11:02 11:02 WBC 25.7 H* (4.5-11.0) T/MM3 RBC 4.13 (4.00-5.20) M/MM3 Hgb 13.0 (12-16) GM/DL Hct 39.2 (36-46) % MCV 94.9 (80-100) UM3 MCH 31.5 (26-34) UUG MCHC 33.2 (31-37) GM/DL RDW Std Deviation 44.7 (36.9-50.2) FL Plt Count 297 D (130-400) T/MM3 MPV 9.1 L (9.4-12.4) UM3 Immature Gran % (Auto) Not performed Neut % (Auto) Not performed Lymph % (Auto) Not performed [place] % (Auto) Not performed Eos % (Auto) Not performed Baso % (Auto) Not performed Neut # (Auto) Not performed Lymph # (Auto) Not performed [place] # (Auto) Not performed Eos # (Auto) Not performed Baso # (Auto) Not performed Abs Immat Gran (auto) Not performed Neutrophils % (Manual) 81.0 H (33-66) % Band Neutrophils % 13.0 H D (0-6) % Lymphocytes % (Manual) 2.0 L (23-45) % Monocytes % (Manual) 4.0 (0-9.0) % Neutrophils # (Manual) 20.8 H (1.8-7.7) T/MM3 Band Neutrophils # 3.3 T/MM3 Lymphocytes # (Manual) 0.5 L (1-4.8) T/MM3 Monocytes # (Manual) 1.0 H (0-0.8) T/MM3 Poikilocytosis 1+ Anisocytosis 1+ RBC Morph Comment Abnormal Turbidity < 20 (0-20) Sodium 146 H (134-144) MEQ/L Potassium 4.0 (3.6-5) MEQ/L Chloride 109 H (98-107) MEQ/L Carbon Dioxide 24 (22-30) MEQ/L Anion Gap 13 (5-15) meq/L BUN 15.0 (7-17) MG/DL Creatinine 0.9 (0.7-1.2) mg/dL GFR Calculation 59 BUN/Creatinine Ratio 17 (6-26) RATIO Glucose 147 H (65-110) MG/DL Calculated Osmolality 285 H (261-280) MOSM/KG Calcium 9.2 (8.4-10.2) MG/DL Icterus Index < 2 (0-7) Plasma Lactate 1.2 (0.6-2.2) MMOL/L Specimen Hemolysis < 15 (0-25) Ur Collection Type Urine, cath straight Urine Color Yellow (YELLOW) Urine Clarity Clear Urine pH 7.0 (5.0-8.0) Ur Specific [place] 1.015 (1.015-1.025) Urine Protein Negative (NEGATIVE) Urine Glucose (UA) Negative (NEGATIVE) Urine Ketones 1+ A (NEGATIVE) Urine Occult Blood Negative (NEGATIVE) Urine Nitrate Negative (NEGATIVE) Urine Bilirubin Negative (NEGATIVE) Urine Urobilinogen 0.2 (NORMAL) EU/DL Ur Leukocyte Esterase Negative (NEGATIVE) Urinalysis Comment Microscopic not ind. - Radiology Data Attestation: I reviewed the patient's radiology results. CXR: Elevated right hemidiaphragm. Stable chest. No acute CT pathology. Possible effusion on left side with ?increased opacities in LLL. Disposition Clinical Impression: HCAP (healthcare-associated pneumonia) Sepsis Qualifiers: Sepsis type: sepsis due to unspecified organism Qualified Code(s): A41.9 - Sepsis, unspecified organism [place] [facility] [place] Print Language: [place] Condition: Improved Prescriptions: No Action Prazosin [Minipress] 1 mg PO HS Alendronate [Fosamax] 70 mg PO Q7D Rosuvastatin [Crestor] 10 mg PO HS Donepezil HCl [Aricept] 10 mg PO HS Calcium Carbonate/Vitamin D3 [Caltrate 600 Plus D3 Tablet] 1 tab PO BID Dextromethorphan HBr [Tussin Cough] 10 ml PO Q4H PRN PRN Reason: Cough Multivitamin [One Daily] 1 each PO DAILY Citalopram [Celexa] 10 mg PO DAILY Milk of Magnesia [Mom] 30 ml PO DAILY PRN PRN Reason: Constipation Acetaminophen 325 mg PO Q5H PRN PRN Reason: Pain Polyethylene Glycol 3350 [Smoothlax] 17 gm PO DAILY Bisacodyl Supp [Dulcolax] 10 mg RECTALLY DAILY PRN PRN Reason: Constipation Memantine [Namenda] 10 mg PO BID Acetaminophen [Acetaminophen Extra Strength] 500 mg PO TID Docusate Sodium [Colace] 100 mg PO BID CephALEXin [Keflex 500 mg] 500 mg PO TID #24 cap Clotrimazole Ramana [Mycelex Ramana] 10 mg MM 5XD #40 ramana Miconazole Nitrate [Antifungal Cream] 1 applicatio TOP Q8H Referrals: Abilio Bell MD [Primary Care Provider] - Time of Disposition: 12:38 - Seen By: physician
[2018-03-12] MEDS: LEVOFLOXACIN PB 750 MG/150 ML BAG IV SCH (12:39)
[2018-03-12] MEDS: SALINE FLUSH 10ml SYRINGE IVF PRN (12:41)
--- NOTE | 2018-03-12 14:07 | History & Physical Report ---
History of Present Illness Date: 03/12/18 Chief complaint: fever HPI: Mrs Anderson is an 87-year-old female who is known to the Hospital services from recent admission for septicemia with urinary tract infection. She was discharged on 03/04/18 [facility] where she resides. Reported that she was doing well until today at which time she was noted to have a fever. She was brought to the emergency room for further evaluation and treatment. Temperature on arrival was 101.7, she was tachycardic at 116. Room air saturations 90-92% Infectious workup was initiated as patient was found to have leukocytosis with a white count of 25.7, 81% neutrophils with 13% bandemia. Mister he did reveal elevated sodium of 146, potassium 4.0. Venous lactate 1.2 Urinalysis was unremarkable. Chest x-ray did reveal questionable effusion and opacities. Given findings of leukocytosis, accompanied with sirs and suspicion of pulmonary infectious process. The hospitalist services were contacted and accepted patient for inpatient admission for further evaluation, treatment Patient is seen on initial examination. She is alert, however, confused, which is her baseline as per her daughter. She does have significant dementia. Daughter does verbalize her concern of possible aspiration. She does note that she has had episodes at which time she has coughed and required antibiotics in the past for treatment of pneumonia. Daughter reports that overall her cognitive status has continued to decline secondary to her chronic dementia. Did discuss advanced directives. She does wish to be a do not resuscitate Review of Systems ROS unobtainable: due to mental status Past Medical History Medical History Updates: Depression/Anxiety. Dementia with behavioral disturbance. HTN. DLDM. Osteoporosis Surgical History: Hysterectomy. Left hip Family History: Both parents of CVA Family History: As Above - Social History Smoking status: Never smoker Substance use type: does not use Housing: detention ([facility]) Current occupational status: retired Does patient use chewing tobacco?: No Social history: PCP Dr Bell Medications Home Medications Medication Instructions Recorded Confirmed Type Acetaminophen [Acetaminophen Extra 500 mg PO TID 08/06/17 03/12/18 History Strength] Alendronate [Fosamax] 70 mg PO Q7D 08/06/17 03/12/18 History Bisacodyl Supp [Dulcolax] 10 mg RECTALLY DAILY PRN 08/06/17 03/12/18 History Calcium Carbonate/Vitamin D3 1 tab PO BID 08/06/17 03/12/18 History [Caltrate 600 Plus D3 Tablet] Dextromethorphan HBr [Tussin Cough] 10 ml PO Q4H PRN 08/06/17 03/12/18 History Donepezil HCl [Aricept] 10 mg PO HS 08/06/17 03/12/18 History Memantine [Namenda] 10 mg PO BID 08/06/17 03/12/18 History Prazosin [Minipress] 1 mg PO HS 08/06/17 03/12/18 History Rosuvastatin [Crestor] 10 mg PO HS 08/06/17 03/12/18 History Acetaminophen 325 mg PO Q5H PRN 02/26/18 03/12/18 History Citalopram [Celexa] 10 mg PO DAILY 02/26/18 03/12/18 History Docusate Sodium [Colace] 100 mg PO BID 02/26/18 03/12/18 History Milk of Magnesia [Mom] 30 ml PO DAILY PRN 02/26/18 03/12/18 History Multivitamin [One Daily] 1 each PO DAILY 02/26/18 03/12/18 History Polyethylene Glycol 3350 17 gm PO DAILY 02/26/18 03/12/18 History [Smoothlax] CephALEXin [Keflex 500 mg] 500 mg PO TID #24 cap 03/04/18 03/12/18 Rx Clotrimazole Ramana [Mycelex 10 mg MM 5XD #40 ramana 03/04/18 03/12/18 Rx Ramana] Miconazole Nitrate [Antifungal 1 applicatio TOP Q8H 03/12/18 03/12/18 History Cream] Allergies Allergy/AdvReac Type Severity Reaction Status Date / Time No Known Allergies Allergy Verified 02/26/18 09:44 Exam Vital Signs: Temperature 101.7 F H 03/12/18 10:35 Pulse Rate 115 H 03/12/18 11:30 Respiratory Rate 22 03/12/18 10:35 Blood Pressure 135/58 03/12/18 11:30 Pulse Oximetry 90 03/12/18 11:30 - Constitutional Present: no acute distress, well nourished, well developed - Routine HEENT Exam Eye: Present: EOMI ENT: Present: mucous membranes moist, dentition normal - Routine Respiratory Exam Present: diminished air movement - Routine Cardiovascular Exam Present: RRR, S1, S2. Absent: murmur - Routine Abdominal Exam Present: soft, normoactive bowel sounds, non distended. Absent: tenderness - Routine Extremities Exam Present: full ROM - Routine Skin Exam Present: intact, dry, warm - Routine Neurological Exam Present: alert, CN II-XII intact, altered mental status, moving all extremities - Routine Psychiatric Exam Present: cooperative Results - Labs CBC & Chem 7: 03/12/18 11:02 03/12/18 11:02 Assessment and Plan (1) HCAP (healthcare-associated pneumonia) Current visit: Yes Status: Acute (2) Sepsis Current visit: Yes Status: Acute Assessment and Plan: Impression [id number], leukocytosis, fever, suspected pulmonary source Healthcare associated pneumonia (Likely Aspiration) - Given recent hospitalization as well as resident at nursing facility Leukocytosis with bandemia-present on admission Hypernatremia and present on admission Hypertension Dyslipidemia Dementia Chronic dysphasia with likely chronic aspiration Plan Admit patient to hospitalist services under the care of Dr. Guzman for sepsis , pneumonia She was started on IV cefepime and Levaquin while in the emergency room. Oxygen as needed to keep saturations greater than 92%, will scheduled DuoNeb breathing treatments 4 times a day Initial lactate and blood cultures were obtained in the emergency room. Will repeat venous lactate at 1500 as per sepsis protocol. qSOFA score 1-2/3- Difficult to assess accurate mentation given dementia.Continue to monitor carefully Half-normal saline at 100 ML per hour for gentle hydration Will recheck CBC and BMP tomorrow morning to follow blood counts, renal function and electrolytes Consult with speech therapy to evaluate swallow. Daughter feels that patient chronically aspirates. We did discuss potential deterioration at which time, patient would not be able to maintain adequate nutrition. Daughter reports that she would not want any invasive long-term feeding as this is not what patient would desire. If patient does not show signs of improvement, Daughter has considered comfort care Patient is a do not resuscitate Will discuss further orders and plan of care with attending, Dr. Guzman At time of discharge medical care will return to primary care provider, Leiva Physician addendum: The patient was seen and examined by me in the ED prior to arriving on the floor. She is drowsy and confused on my exam although this may be consistent with her recent baseline. Breathing is nonlabored, no edema in the LE. CXR reviewed with possible infiltrate on the lower left. Given recent hospitalization, agree with broad coverage with cefepime and levaquin. Vancomycin likely not necessary but will add if not improving in the next 24 hours. Agree that this is likely aspiration, after discussion with her daughter. Advanced dementia; she wishes for patient to be a DNR, they have discussed in the past. I agree with the assessment and plan as above, will monitor repeat lactic acid level, continue antibiotics and supportive care, if not improving in the coming days may need further discussions about goals of care. DVT Prophylaxis: SCD's Resuscitation Status: Do Not Resuscitate - Time spent with patient Time with patient PN: 50 minutes - Physician Narrative Narrative: Date: 03/12/18 Time: 1402 Hospital Course Summary Disclaimer: The visit summary below is not to be considered part of the above Progress Note. Hospital Course: Impression [id number]-[id number], leukocytosis, fever, suspected pulmonary source Healthcare associated pneumonia (Likely Aspiration) - Given recent hospitalization as well as resident at nursing facility Leukocytosis with bandemia-present on admission Hypernatremia and present on admission Hypertension Dyslipidemia Dementia Chronic dysphasia with likely chronic aspiration 03/12- Admission Admit patient to hospitalist services under the care of Dr. Guzman for sepsis , pneumonia She was started on IV cefepime and Levaquin while in the emergency room. Oxygen as needed to keep saturations greater than 92%, will scheduled DuoNeb breathing treatments 4 times a day Initial lactate and blood cultures were obtained in the emergency room. Will repeat venous lactate at 1500 as per sepsis protocol. qSOFA score 1-2/3- Difficult to assess accurate mentation given dementia.Continue to monitor carefully Half-normal saline at 100 ML per hour for gentle hydration Will recheck CBC and BMP tomorrow morning to follow blood counts, renal function and electrolytes Consult with speech therapy to evaluate swallow. Daughter feels that patient chronically aspirates. We did discuss potential deterioration at which time, patient would not be able to maintain adequate nutrition. Daughter reports that she would not want any invasive long-term feeding as this is not what patient would desire. If patient does not show signs of improvement, Daughter has considered comfort care Patient is a do not resuscitate Will discuss further orders and plan of care with attending, Dr. Guzman At time of discharge medical care will return to primary care provider, Leiva
[2018-03-12] MEDS ORDERED: ACETAMINOPHEN 500 MG TABLET PO PRN (14:26)
[2018-03-12] MEDS: 1/2 NS 1,000 ML IV SCH (14:27)
[2018-03-12 14:40] VITALS: BMI 29.0
[2018-03-12] MEDS: ALBUTEROL/IPRATROPIUM 2.5mg-0.5mg/3ml NEB AEROSOL SCH ×2 (16:30→19:43)
--- NOTE | 2018-03-12 22:42 | XRay Report ---
Indication: AMS PROCEDURE: XR chest 1V: Encounter: Initial Comparison: March 02, 2018 Findings: Lungs are hypoinflated with bibasilar airspace disease. Mildly increased interstitial markings in the right midlung as well. No pneumothorax. Cardiac silhouette is stable. Mediastinal contours are stable. Impression: Hypoinflation with basilar airspace disease could represent atelectasis or pneumonia. .
[2018-03-13] MEDS: 1/2 NS 1,000 ML IV SCH ×2 (00:40→09:07)
--- NOTE | 2018-03-13 08:48 | Progress Note ---
- Date 03/13/18 Subjective: Mrs. Anderson was still sleeping and appeared very comfortable. Her daughter Africa was present. Africa has been considering the best plan of care for her mother. When Ian was younger, she lived independently on [facility] and volunteered in the main building. She told Africa that she wouldn't want to live with advanced dementia. Africa knows that she will continue to aspirate, and she is considering hospice care so that she wouldn't have to come back into the hospital the next time this happens. Currently, Ian is nonambulatory, primarily incontinent of bowel/bladder, knows Africa and sometimes Africa's daughter (but cannot identify other family members), and inconsistently can make needs known. She sleeps a lot. She doesn't have any uncontrolled symptoms that Africa is aware of. Objective Vital signs: Temperature 95.8 F L 03/13/18 07:25 Pulse Rate 105 H 03/13/18 07:25 Respiratory Rate 20 03/13/18 07:25 Blood Pressure 123/58 03/13/18 07:25 Pulse Oximetry 92 03/13/18 07:25 Height/Weight/BMI: Height 1.57 m Weight 72.5 kg Body Mass Index 29.0 - Constitutional Present: no acute distress, well nourished, well developed - Routine HEENT Exam Head: Present: normocephalic ENT: Present: mucous membranes dry - Routine Cardiovascular Exam Present: RRR, S1, S2 - Routine Abdominal Exam Present: soft. Absent: normoactive bowel sounds (hypoactive) - Routine Extremities Exam Present: no edema, pulses intact - Routine Musculoskeletal Exam Musculoskeletal: Present: no clubbing or cyanosis - Routine Skin Exam Present: intact, dry, warm - Routine Neurological Exam Absent: alert (sleeping; opens eyes momentarily but does not answer questions) - Routine Psychiatric Exam Present: unable to assess Results - Labs CBC & Chem 7: 03/13/18 05:19 03/13/18 05:19 Assessment and Plan (1) HCAP (healthcare-associated pneumonia) Current visit: Yes Status: Acute (2) Sepsis Current visit: Yes Status: Acute Assessment and Plan: Impression Sihpmn-sqmmndzybwqomg-[id number], leukocytosis, fever, suspected pulmonary source Healthcare associated pneumonia (Likely Aspiration) - Given recent hospitalization as well as resident at nursing facility Leukocytosis with bandemia - present on admission Hypernatremia present on admission - resolved Hypertension Dyslipidemia Dementia Chronic dysphasia with likely chronic aspiration Plan Aspiration pneumonia - awaiting speech eval. Continue cefepime and levaquin; monitor mentation while on levaquin. WBC/bandemia minimally improved from yesterday, WBC 23.3 and bands 11%. Continue supportive care with DuoNeb. She's maintaining sats on room air. Na improved to 141. Decrease rate of IVF Pt with advanced dementia; recurrent aspiration, inconsistent ability to make needs known, nonambulatory, and incontinent of B/B. Daughter requests information visit from Curtis Montague. Discussed with CM - she will facilitate this meeting. DVT Prophylaxis: SCD's Resuscitation Status: Do Not Resuscitate - Physician Narrative Physician: Eugenie Stewart MD Narrative: Date: 03/13/18 Time: 2:50 PM-I reviewed this chart, the patient history, and the [employer]'s/PA's documented findings as above. We discussed and formulated the assessment and plan as above with the additions below.-Dr. Stewart The patient was seen this afternoon accompanied by her daughter Africa. The patient is not able to give any history because of her dementia. Africa states that the patient was hospitalized with UTI and dismissed approximately one week ago. When she went to visit her on Tuesday she noticed she was a little more lethargic than usual. She was notified yesterday by the halfway that the patient had a fever and she was taken to the emergency room. In the ER she had a chest x-ray showing possible atelectasis versus pneumonia in the bases. She has had a cough when she eats, but this is chronic. Africa states that she has not noticed any cough called day except when the patient was eating. The patient did complain of some abdominal pain to the nurses earlier today but did not answer my question when I asked her about abdominal pain. The patient had 6 loose stools today. GI panel was positive for C. difficile. The patient's daughter states that the patient did have some diarrhea within the first day or 2 after transfer back to the halfway. On exam the patient is awake but has severe dementia. She is able to follow some simple commands and answers a few yes no questions. She appears in no distress. MAXIMUM TEMPERATURE is 101.7. T Juan F 100.1. Heart rate has ranged from 105- 114. Recent blood pressure is 100/48. O2 sat is 97% on room air. Exam chest is clear to auscultation anteriorly and posteriorly. Cardiovascular reveals a borderline tachycardic rate with irregular rhythm. Abdomen is soft and nontender. Extremities are free of edema. Neurologic exam reveals the patient to have no focal deficits that I can appreciate. Face appears symmetric. Motor strength is weak but strength is equal in the upper and lower extremities. Skin is warm and dry. Impression Sepsis, fever, leukocytosis with questionable pneumonia versus atelectasis on chest x-ray. She has a chronic cough from suspected dysphagia when she eats. Otherwise she is having no cough. At this time, I think it is less likely that she has pneumonia and more likely that C. difficile is causing her fevers and sepsis. We'll discontinue Levaquin and cefepime. Start oral vancomycin for C. difficile. Continue to monitor vital signs and check chest x-ray tomorrow. Recheck CBC and basic metabolic profile tomorrow. Regarding metabolic acidosis, will change IV fluids to D5 W with 100 mEq of sodium bicarbonate and 20 mEq of potassium to run at 75 ML's per hour. Metabolic acidosis is likely secondary to the patient's diarrhea. Regarding chronic dysphagia, speech therapy was consulted and the patient will undergo a swallowing study tomorrow. Regarding severe dementia, Africa has asked to speak with the hospice nurse regarding what hospice has to offer. Hospital Course Summary Disclaimer: The visit summary below is not to be considered part of the above Progress Note. Hospital Course: 03/12/18 Admit patient to hospitalist services under the care of Dr. Guzman for sepsis , pneumonia She was started on IV cefepime and Levaquin while in the emergency room. Oxygen as needed to keep saturations greater than 92%, will scheduled DuoNeb breathing treatments 4 times a day Initial lactate and blood cultures were obtained in the emergency room. Will repeat venous lactate at 1500 as per sepsis protocol. Half-normal saline at 100 ML per hour for gentle hydration Consult with speech therapy to evaluate swallow. Daughter feels that patient chronically aspirates. We did discuss potential deterioration at which time, patient would not be able to maintain adequate nutrition. Daughter reports that she would not want any invasive long-term feeding as this is not what patient would desire. If patient does not show signs of improvement, Daughter has considered comfort care Patient is a do not resuscitate 03/13/18 Aspiration pneumonia - awaiting speech eval. Continue cefepime and levaquin; monitor mentation while on levaquin. WBC/bandemia minimally improved from yesterday, WBC 23.3 and bands 11%. Continue supportive care with DuoNeb. She's maintaining sats on room air. Na improved to 141. Decrease rate of IVF Pt with advanced dementia; recurrent aspiration, inconsistent ability to make needs known, nonambulatory, and incontinent of B/B. Daughter requests information visit from Curtis Montague. Discussed with CM - she will facilitate this meeting.
[2018-03-13] MEDS ORDERED: CEFEPIME 1 GM in NS 100 ML IV SCH (09:00)
[2018-03-13] MEDS ORDERED: 1/2 NS 1,000 ML IV SCH (09:15)
[2018-03-13] MEDS: ALBUTEROL/IPRATROPIUM 2.5mg-0.5mg/3ml NEB AEROSOL SCH ×4 (09:30→20:50)
[2018-03-13] MEDS: LEVOFLOXACIN PB 750 MG/150 ML BAG IV SCH (12:50)
[2018-03-13] MEDS: VANCOMYCIN 250mg/5ml ORAL LIQ PO SCH ×2 (14:26→21:01)
[2018-03-13] MEDS: SODIUM BICARBONATE 100 MEQ, POTASSIUM CHLORIDE INJ 20 MEQ in D5W 1,000 ML IV SCH (15:32)
[2018-03-14] MEDS: VANCOMYCIN 250mg/5ml ORAL LIQ PO SCH ×4 (03:52→21:52)
[2018-03-14] MEDS: ALBUTEROL/IPRATROPIUM 2.5mg-0.5mg/3ml NEB AEROSOL SCH (07:55)
[2018-03-14] MEDS: SODIUM BICARBONATE 100 MEQ, POTASSIUM CHLORIDE INJ 20 MEQ in D5W 1,000 ML IV SCH (08:17)
--- NOTE | 2018-03-14 09:06 | XRay Report ---
Indication: follow up atelectasis vs pnuemonia PROCEDURE: XR chest 1V: Encounter: Initial Comparison: March 12, 2018 Findings: Continued elevation of the right hemidiaphragm. No new or worsening airspace disease. Aeration of the right base is slightly improved. No pneumothorax. Heart size and mediastinal contours are stable. Pulmonary vascularity appears normal. Impression: Interval improvement in right basilar atelectasis. .
--- NOTE | 2018-03-14 09:25 | Progress Note ---
- Date 03/14/18 Subjective: Mrs. Anderson was awake and alert to self. She smiled and was pleasant and answered questions with one-word responses. She is hard of hearing. She denied feeling SOA or having any pain. She followed commands -- when I asked her to open her mouth, thrush was noted on tongue. [place] was present and stated that she pulled out her IV again. She requests not to have labs drawn again tomorrow morning. She was able to take her potassium pills crushed this am without difficulty. Objective Vital signs: Temperature 96.9 F 03/14/18 07:29 Pulse Rate 92 03/14/18 07:29 Respiratory Rate 18 03/14/18 07:55 Blood Pressure 143/67 H 03/14/18 07:29 Pulse Oximetry 94 03/14/18 07:55 Height/Weight/BMI: Height 1.57 m Weight 73.8 kg Body Mass Index 29.0 - Constitutional Present: no acute distress, well nourished, well developed - Routine HEENT Exam Head: Present: normocephalic Eye: Absent: conjunctival icterus, scleral injection ENT: Absent: oropharynx clear (thrush) - Routine Respiratory Exam Present: CTA bilaterally - Routine Cardiovascular Exam Present: RRR, S1, S2 - Routine Abdominal Exam Present: soft, normoactive bowel sounds (hyperactive), non distended, non tender - Routine Extremities Exam Present: no edema, pulses intact - Routine Musculoskeletal Exam Musculoskeletal: Present: no clubbing or cyanosis - Routine Skin Exam Present: intact, dry, warm - Routine Neurological Exam Present: alert - Routine Psychiatric Exam Present: cooperative Results - Labs CBC & Chem 7: 03/14/18 05:02 03/14/18 05:02 Assessment and Plan (1) HCAP (healthcare-associated pneumonia) Current visit: Yes Status: Acute (2) Sepsis Current visit: Yes Status: Acute Assessment and Plan: Impression [id number], leukocytosis, fever, secondary to C. difficile C. 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 difficile WBC improved to 16.3 and bands have decreased to 9%. No fevers yet today. IV abx were stopped yesterday and PO vanco was initiated. She has already had 3 diarrheal stools since midnight. Metabolic acidosis Improving, CO2 up to 26 Continue D5W with sodium bicarb and K Hypokalemia K 3.1. Mg stable at 2.1. Replaced with KDur 40 mEq orally Thrush Start Mycelex troches - she inconsistently tolerated this during her last hospitalization when she had thrush Chronic dysphagia Swallow study ordered per speech therapy Advanced dementia Africa met with [facility] yesterday and Mrs. Anderson qualifies for hospice. Africa would like for her to go back to [facility] on hospice as long as they can continue PO vanco. Check with CM about [facility] requirements for residents with C. difficile - she' s still having several stools per day. Will discontinue morning labs per Africa's request for her mother's comfort. 03/14/2018-10:10 AM-I examined the patient independently. I reviewed this chart , the patient history, and the [facility]MER's/PA's documented findings as above. We discussed and formulated the assessment and plan as above with the additions below.-Dr. Stewart The patient was seen this morning accompanied by her daughter, Africa. The patient was awakened from sleep. She states she is feeling okay. She denies pain. She denies abdominal discomfort. On exam she is alert. She is able to follow some simple commands. HEENT reveals oropharynx to be moist. Neck is supple. Chest is clear to auscultation. Cardiovascular reveals a regular rate and rhythm. Abdomen is soft and nontender. Extremities are free of edema. Skin is warm and dry and without rashes. Impression and plan Sepsis, most likely secondary to C. difficile. Antibiotics for pneumonia discontinued. The patient has remained on room air with good oxygen saturations. White count is decreasing. Continue oral vancomycin. Encourage by mouth intake. DC IV fluids when current bag is empty. Africa spoke with [facility] yesterday and we'll likely initiate hospice at the correction. Possible dismissal tomorrow. No further lab draws. At this time, the patient appears comfortable. DVT Prophylaxis: SCD's Resuscitation Status: Do Not Resuscitate - Physician Narrative Narrative: Date: 03/14/18 Time: 919 Hospital Course Summary Disclaimer: The visit summary below is not to be considered part of the above Progress Note. Hospital Course: 03/12/18 Admit patient to hospitalist services under the care of Dr. Guzman for sepsis , pneumonia She was started on IV cefepime and Levaquin while in the emergency room. Oxygen as needed to keep saturations greater than 92%, will scheduled DuoNeb breathing treatments 4 times a day Initial lactate and blood cultures were obtained in the emergency room. Will repeat venous lactate at 1500 as per sepsis protocol. Half-normal saline at 100 ML per hour for gentle hydration Consult with speech therapy to evaluate swallow. Daughter feels that patient chronically aspirates. We did discuss potential deterioration at which time, patient would not be able to maintain adequate nutrition. Daughter reports that she would not want any invasive long-term feeding as this is not what patient would desire. If patient does not show signs of improvement, Daughter has considered comfort care Patient is a do not resuscitate 03/13/18 WBC/bandemia minimally improved from yesterday, WBC 23.3 and bands 11%. Na improved to 141. Diagnosed with C. difficile and IV antibiotics were stopped. PO vanco ordered. IVF changed to D5W with sodium bicarbonate and 20 mEq of KCl for acidosis. Had informational meeting with [facility]. 03/14/18 Sepsis secondary to C. difficile WBC improved to 16.3 and bands have decreased to 9%. She has already had 3 diarrheal stools since midnight. Metabolic acidosis Improving, CO2 up to 26. Continue D5W with sodium bicarb and K Hypokalemia K 3.1. Mg stable at 2.1. Replaced with KDur 40 mEq orally Thrush Start Mycelex troches - she inconsistently tolerated this during her last hospitalization when she had thrush Chronic dysphagia Swallow study ordered per speech therapy Advanced dementia Africa met with [facility] yesterday and Mrs. Anderson qualifies for hospice. Will discontinue morning labs per Africa's request for her mother's comfort.
[2018-03-14] MEDS ORDERED: ALBUTEROL/IPRATROPIUM 2.5mg-0.5mg/3ml NEB AEROSOL PRN (10:01)
[2018-03-14] MEDS: CLOTRIMAZOLE 10 MG TROCHE MM SCH ×4 (13:38→21:52)
[2018-03-15] MEDS: VANCOMYCIN 250mg/5ml ORAL LIQ PO SCH ×2 (02:48→10:25)
[2018-03-15] MEDS: SALINE FLUSH 10ml SYRINGE IVF PRN (02:48)
[2018-03-15 07:18] VITALS: BP 147/69; RESP 16; TEMP 98.4; O2SAT 94
[2018-03-15] MEDS: CLOTRIMAZOLE 10 MG TROCHE MM SCH (10:26)
--- NOTE | 2018-03-15 11:33 | Extended Care Facility Orders ---
Admission Orders Admit to:: ICF Allergies/Adverse Reactions: Allergies No Known Allergies Allergy (Verified 02/26/18 09:44) Admitting Diagnosis: fever,sepsis Admitting Physician: Astrid Hoyos MD Attending Physician: Astrid Hoyos MD Code Status: Do Not Resuscitate Anticiapted Length of Stay: 30 days or less Rehab Potential: poor Rehab Prognosis: poor Diet: Pured diet, syrup thickened liquids Wound/Incision Care: Not applicable May use Facility Protocol or Standing Orders: Yes May have flu vaccine: Yes Care Home Certification: I certify that SNF services are required to be given on an Inpatient basis because of the patients need for snf care on a continuing basis for the condition(s) for which he/she received inpatient hospital services prior to his/her transfer to the SNF. SNF inpatient care is necessary for the following reasons Indication for Care Home: Not Applicable - Additional Information In Event of Arrest: Do Not Start CPR Resident is Aware of Diagnosis: No Additional Orders: TO DEVONTE CASTRO WITH [facility]; C. difficile precautions-continue treatment with vancomycin for additional 12 days.
[2018-03-15 14:56] VITALS: PULSE 84
--- NOTE | 2018-03-15 15:22 | Discharge Summary ---
Discharge Information Date of admission: 03/12/18 12:45 Anticipated date of discharge: 03/15/18 Attending Physician: Astrid Hoyos MD Primary care physician: Abilio Bell MD Consults: - Discharge Diagnosis (1) C. difficile colitis Status: Acute (2) Sepsis Status: Acute (3) HCAP (healthcare-associated pneumonia) Status: Ruled-out Sepsis, secondary to C. difficile C. difficile Metabolic acidosis secondary to diarrhea/dehydration - improving Hypokalemia (not POA) Leukocytosis with bandemia - present on admission Hypernatremia present on admission - resolved Thrush Chronic dysphasia with chronic aspiration Hypertension Dyslipidemia Dementia - Laboratory Labs: On admission (03/12/18) white count was 25.7 with 81% neutrophils, 13% bands; hemoglobin 13.0. Sodium 146, creatinine 0.9; lactic acid 1.2. Stool panel was positive for C. difficile toxin on 03/13/18. 03/14/18 05:02 03/14/18 05:02 - Microbiology Blood cultures drawn 03/12/18 2 negative at discharge - Radiology Radiology: Chest x-ray on 03/12/18 demonstrated hypoinflation with bibasilar airspace disease suggestive of atelectasis or pneumonia. Repeat x-ray on 03/14 revealed interval improvement in basilar atelectasis on the right but persistent left basilar atelectasis. History of Present Illness HPI: Mrs Anderson is an 87-year-old female who is known to the Hospital services from recent admission for septicemia with urinary tract infection. She was discharged on 03/04/18 [place] where she resides. Reported that she was doing well until today at which time she was noted to have a fever. She was brought to the emergency room for further evaluation and treatment. Temperature on arrival was 101.7, she was tachycardic at 116. Room air saturations 90-92% Infectious workup was initiated as patient was found to have leukocytosis with a white count of 25.7, 81% neutrophils with 13% bandemia. Mister he did reveal elevated sodium of 146, potassium 4.0. Venous lactate 1.2 Urinalysis was unremarkable. Chest x-ray did reveal questionable effusion and opacities. Given findings of leukocytosis, accompanied with sirs and suspicion of pulmonary infectious process. The hospitalist services were contacted and accepted patient for inpatient admission for further evaluation, treatment Patient is seen on initial examination. She is alert, however, confused, which is her baseline as per her daughter. She does have significant dementia. Daughter does verbalize her concern of possible aspiration. She does note that she has had episodes at which time she has coughed and required antibiotics in the past for treatment of pneumonia. Daughter reports that overall her cognitive status has continued to decline secondary to her chronic dementia. Did discuss advanced directives. She does wish to be a do not resuscitate Objective Vital signs: Temperature 98.4 F 03/15/18 07:16 Pulse Rate 84 03/15/18 08:00 Respiratory Rate 16 03/15/18 07:16 Blood Pressure 147/69 H 03/15/18 07:16 Pulse Oximetry 94 03/15/18 07:16 Elderly female, pleasantly confused Abdomen soft, nontender Height/Weight/BMI: Height 1.57 m Weight 72.9 kg Body Mass Index 29.0 Hospital Course This is a general summary of the patient's hospital course. For more details refer to the complete medical record. Hospital course: 03/12/18 Admit patient to hospitalist services under the care of Dr. Guzman for sepsis , pneumonia She was started on IV cefepime and Levaquin while in the emergency room. Oxygen as needed to keep saturations greater than 92%, will scheduled DuoNeb breathing treatments 4 times a day Initial lactate and blood cultures were obtained in the emergency room. Will repeat venous lactate at 1500 as per sepsis protocol. Half-normal saline at 100 ML per hour for gentle hydration Consult with speech therapy to evaluate swallow. Daughter feels that patient chronically aspirates. We did discuss potential deterioration at which time, patient would not be able to maintain adequate nutrition. Daughter reports that she would not want any invasive long-term feeding as this is not what patient would desire. If patient does not show signs of improvement, Daughter has considered comfort care Patient is a do not resuscitate 03/13/18 WBC/bandemia minimally improved from yesterday, WBC 23.3 and bands 11%. Na improved to 141. C. difficile toxin positive; GI infection is probable cause of presenting sepsis and pneumonia ruled out. Diagnosed with C. difficile and IV antibiotics were stopped. PO vanco ordered. IVF changed to D5W with sodium bicarbonate and 20 mEq of KCl for acidosis. Had informational meeting with [facility]. 03/14/18 WBC improved to 16.3 and bands have decreased to 9%. She has already had 3 diarrheal stools since midnight. Acidosis resolving, CO2 up to 26. Continue D5W with sodium bicarb and K K 3.1. Mg stable at 2.1. Replaced with KDur 40 mEq orally Thrush present, Mycelex initiated. Speech therapy recommended pured diet with thickened liquids; additionally has suggested swallow study however family has opted to forego additional studies. Africa met with [facility] yesterday and Mrs. Anderson qualifies for hospice and family plans to sign on with hospice when patient returns to [facility] tomorrow. Will discontinue morning labs per Africa's request for her mother's comfort. 03/15/18 Continues to have loose stools per nursing report but frequency has diminished significantly today. Poor oral intake per family at bedside. Stable for discharge as previously planned; family reiterates intent to initiate hospice care on return to [facility]. Majority of patient's chronic medications were discontinued yesterday but will continue oral vancomycin to treat current infection. Mrs. Anderson was admitted with sepsis which was initially thought to be due to pneumonia but subsequently out when C. difficile was confirmed. Initial chest x-ray findings consistent with atelectasis rather than pneumonia. Patient is clinically stable for discharge to [facility] at this time. Message left for Dr. Bell regarding family's intent. Time spent with patient: discharge greater than 30 minutes Resuscitation Status: Do Not Resuscitate Discharge Plan - Discharge Disposition Discharge Date: 03/15/18 Disposition: [address] [facility] Home/Facility *Condition: Improved Reason For Visit (Visit label in EMR): fever,sepsis - Discharge Medications *Discharge Medications: New Albuterol/Ipratropium [Duoneb] 3 ml AEROSOL QID PRN each PRN Reason: Shortness Of Air Clotrimazole Ingrid [Mycelex Ingrid] 10 mg MM 5XD 10 Days ingrid Vancomycin Oral Liq 125 mg PO QID 12 Days #240 ml Morphine Sulfate *IR* [Morphine Sulfate *Ir*] 15 mg PO QID PRN #30 tab PRN Reason: Agitation/Air Hunger/Pain Acetaminophen [Tylenol] 500 mg PO Q4H PRN tab PRN Reason: fever No Action Prazosin [Minipress] 1 mg PO HS Alendronate [Fosamax] 70 mg PO Q7D Rosuvastatin [Crestor] 10 mg PO HS Donepezil HCl [Aricept] 10 mg PO HS Calcium Carbonate/Vitamin D3 [Caltrate 600 Plus D3 Tablet] 1 tab PO BID Dextromethorphan HBr [Tussin Cough] 10 ml PO Q4H PRN PRN Reason: Cough Multivitamin [One Daily] 1 each PO DAILY Citalopram [Celexa] 10 mg PO DAILY Milk of Magnesia [Mom] 30 ml PO DAILY PRN PRN Reason: Constipation Acetaminophen 325 mg PO Q5H PRN PRN Reason: Pain Polyethylene Glycol 3350 [Smoothlax] 17 gm PO DAILY Bisacodyl Supp [Dulcolax] 10 mg RECTALLY DAILY PRN PRN Reason: Constipation Memantine [Namenda] 10 mg PO BID Acetaminophen [Acetaminophen Extra Strength] 500 mg PO TID Docusate Sodium [Colace] 100 mg PO BID CephALEXin [Keflex 500 mg] 500 mg PO TID #24 cap Clotrimazole Ingrid [Mycelex Ingrid] 10 mg MM 5XD #40 ingrid Miconazole Nitrate [Antifungal Cream] 1 applicatio TOP Q8H - Discharge Packet/Instructions *Diet: pureed diet with syrup thickened liquids *Activity: as tolerates *Pain Management/Treatment: Tylenol as needed *Wound Care: Not applicable Additional Instructions: C. difficile precautions *Expected Signs/Symptoms: Diarrhea, confusion due to dementia *Notify Physician if: Fever, worsening diarrhea, falls *During Business Hours Contact: Dr. Bell office *After Business Hours Contact: Call [facility] at [phone] and ask that the on-call physician be paged *Pending Lab/Results: Follow up w/Provider (final blood culture reports pending- negative at discharge) - Referrals/Follow Up - Patient Handouts Patient Handouts: Fever in Adults (GEN), Clostridium Difficile Infection (GEN) - Dismissal Complete Discharge Instructions are:: Complete Physician Narrative - Narrative Attestation Narrative: Date: 03/15/18 Time: 6079
== END 2018-03-15 14:25 | disposition hospice, home (50) | DRG 871 ==
LOC: ED 10:32 → MED 12:45 → SUATTDRO 12:45 → MED 13:48
PROVIDERS: ADMIT Internal Medicine; ATTEND Internal Medicine